=== PATIENT | female | born 1950 | race Caucasian/White ===

== ENCOUNTER 2017-08-24 13:51 | Inpatient (IN) | payer MEDICARE, OTHER ==
[~2017-08-24] VITALS: Ht 160 cm; Wt 66.7 kg
[2017-08-24] MEDS: ALBUTEROL/IPRATROPIUM 3 ML NEB NEB SCH ×2 (00:50→18:55)
[~2017-08-24 13:51] MED LIST: CARAFATE1 GM PO; FAMOTIDINE20 MG PO; FLUOXETINE HCL20 MG PO; MELATONIN3 M1 PO; METHADONE HCL10 MG PO; NAPROXEN250 MG PO; NEXIUM40 MG PO; PANTOPRAZOLE SO40 MG PO; QUETIAPINE FUM100 MG PO; SEROQUEL50 MG PO; TRAZODONE HCL50 MG PO; TYLENOL # 31 EA PO; ULTRAM 50MG50 MG PO; XANAX0.25 MG PO
--- OUTSIDE RECORDS SUMMARY | 2017-08-24 13:55 | XMS REPORT ---
Author Author [facility] Address Unknown Phone Unavailable Care Team Providers Care Membership Sales Advisor Name Role Phone ANGIE FAIRCHILD Unavailable Unavailable BELL CHILDERS Unavailable Unavailable BERNIE CARBAJAL Unavailable Unavailable Problems This patient has no known problems. Allergies, Adverse Reactions, Alerts This patient has no known allergies or adverse reactions. Medications This patient has no known medications. Results Test Description Test Time Test Comments Text Results Atomic Results Result Comments THORACIC SPINE AP LA [facility] [address] [address] Patient Name: JAMAL PEREA MR #: [id number] : 1950 Age/Sex: 66/F Req #: [id number] [facility] Physician: ANGIE FAIRCHILD MD Ordered by: ANGIE FAIRCHILD MD Report #: [id number] Location: MED/SURG Room/Bed: [facility] Procedure: [id number] DX/THORACIC SPINE AP LA Exam Date : 06/07/17 Exam Time: 2109 REPORT STATUS: Signed EXAM: THORACIC SPINE AP LA, 2 views DATE: 06/07/2017 5:58 PM Time stamp on exam: 6 hours INDICATION: Pain across upper back COMPARISON: CT of the chest June 02, 2017 FINDINGS: BONES: The alignment is within normal limits. No acute displaced fractures. No lytic or blastic lesions. DISCS: Multilevel degenerative disc predominantly of the mid and lower thoracic spine manifested by joint space narrowing and anterior osteophytes. JOINTS: Mild multilevel facet arthropathy. SOFT TISSUES : Right internal jugular vein chest port. Left lower lobe atelectasis. The previously seen left upper anterior mediastinal mass on prior CT is not well seen by x-ray. IMPRESSION: No acute thoracic spine radiographic findings. Signed by: Dr. Bre Mcbride M.D. on 06/07/2017 9:39 PM Dictated By: BRE MCBRIDE MD 38 Transcribed By: BIGG on 06/07/172138 COPY TO: ANGIE FAIRCHILD MD CHEST SINGLE (PORTABLE) [address] [place] [address] Patient Name: JAMAL PEREA MR #: [id number] : 1950 Age/Sex: 66/F Req #: [id number] Adm Physician: Ordered by: NORMAN SRINIVASAN MD Report #: [id number] Location: ER Room/Bed: Procedure: [id number] DX/CHEST SINGLE (PORTABLE) Exam Date: 06/02/17 Exam Time: 1145 REPORT STATUS: Signed PROCEDURE: A single AP view of the chest. COMPARISON: [facility], DX, CHEST SINGLE (PORTABLE), 04/07/2017, 5:45. INDICATIONS: COUGHING BLOOD, SHORTNESS OF BREATH FINDINGS: Lines/tubes: Right chest Port-A -Cath with distal tip projected on the SVC proximal to the caval atrial junction, unchanged. Lungs and Pleura: Re-demonstration of increased density in the lower left hemithorax suggestive of pleural effusion and associated subsegmental atelectasis, however, cannot exclude consolidation or underlying mass. The right lung is clear. Heart and mediastinum: The heart and the mediastinum are unremarkable. Bones: No acute bony abnormality. IMPRESSION: 1. Re-demonstration of increased density in the lower left hemithorax suggestive of pleural effusion and associated subsegmental atelectasis, however, cannot exclude consolidation or underlying mass. Grayson Weaver M.D. Dictated by: Grayson Weaver M.D. on 06/02/2017 at 12:11 Electronically approved by : Grayson Weaver M.D. on 06/02/2017 at 12:11 Dictated By: ANASTACIO WEAVER MD, MD 1211 COPY TO: NORMAN SRINIVASAN MD CT CHEST W [place] [address] Patient Name: JAMAL PEREA MR #: [id number] : 1950 Age/Sex: 66/F Req #: [id number] Adm Physician: ANGIE FAIRCHILD MD Ordered by: NORMAN SRINIVASAN MD Report #: [id number] Location: [facility] Room/Bed: [address] [place] [address] Procedure: [id number] CT/CT CHEST W Exam Date: 06/02/17 Exam Time: 1340 REPORT STATUS: Signed EXAM: CT Chest WITH contrast 06/02/2017 10:38 AM INDICATION: Coughing blood. Lung cancer. Hemoptysis. COMPARISON: None TECHNIQUE: Chest was scanned utilizing a multidetector helical scanner from the lung apex through the level of the adrenal glands without administration of IV contrast. Coronal and sagittal reformations were obtained. Pulmonary embolism protocol was performed. IV CONTRAST: 100 cc Isovue-370. RADIATION DOSE: Total DLP: 467.16 mGy*cm Estimated effective dose: (DLP x 0.014 x size factor ) mSv COMPLICATIONS: None FINDINGS: LINES/ TUBES: Right chest Port-A-Cath with distal tip obscured by contrast, however upper abdomen , within the cavoatrial junction. LUNGS AND AIRWAYS: Left lower lobe compressive atelectasis containing numerous calcified granulomata. Bilateral centrilobular emphysematous changes. 6 mm spiculated lesion in the right upper lobe laterally series 2. Bilateral calcified granulomata. Right basilar dependent atelectasis. 4 mm noncalcified nodule in the left upper lobe laterally on image 57 series 2. 3 mm calcified nodule in the left upper lobe laterally on image 54 series 2. 2 mm subpleural noncalcified nodule in the left upper lobe anterolaterally on image 52 series 3. 6 mm spiculated lesion in the left upper lobe on coronal image 25. PLEURA: Small left pleural effusion. HEART AND MEDIASTINUM: The thyroid gland is normal. Large prevascular mass lateral to the proximal aortic arch measures 4.1 x 3.1 cm on image 40 series 2; there is a large focus of calcification either abutting or within its posterior aspect on image 43; this could represent a lymph node mass, or a pleural-based left upper lobe mass with invasion of the mediastinum. This is smaller mildly prominent lymph nodes scattered throughout the mediastinum. There are also small calcified lymph nodes. Mildly prominent left internal mammary lymph nodes as seen on axial images 41 and 42 series 2. The heart is normal in size.. There is no pericardial effusion. UPPER ABDOMEN: Limited non-contrast views of the upper abdomen show splenomegaly. Heterogeneous spleen with multiple punctate calcified granulomata. The adrenal glands are normal. BONES: No suspicious lesions. SOFT TISSUES: Unremarkable. IMPRESSION: 1. No evidence of pulmonary embolism as per clinical query. 2. 4.1 cm mass abutting the superior left mediastinum may represent a prevascular lymph node mass or a pleural-based central pulmonary malignancy mass with invasion of the mediastinum as detailed above. 3. Small left pleural effusion associated with left basilar compressive atelectasis. 4. Evidence of prior granulomatous disease. 5. Splenomegaly partially visualized. 6. Bilateral subcentimeter spiculated pulmonary lesions are nonspecific; recommend attention on future follow-up to exclude developing neoplasm. 7. Pulmonary emphysema. Signed by: Dr. Grayson Weaver M.D. on 2016 2:31 PM Dictated By: ANASTACIO WEAVER MD, MD 30 Transcribed By: BIGG on 06/02/171430 COPY TO: NORMAN SRINIVASAN MD CHEST SINGLE (PORTABLE) [place] [address] Patient Name: JAMAL PEREA MR #: [id number] : 1950 Age/Sex: 66/F Req #: [id number] Adm Physician: Ordered by: BELL CHILDERS MD Report #: [id number] Location: ER Room/Bed: ___ Procedure: [id number] DX/CHEST SINGLE (PORTABLE) Exam Date: 04/07/17 Exam Time: 0545 REPORT STATUS: Signed EXAM: CHEST SINGLE (PORTABLE), AP 1 view DATE: 04/07/2017 5:21 AM Time stamp on exam : 0545 hours INDICATION: Shortness of breath, cough, history of lung cancer COMPARISON: AP view of the chest the 2016 FINDINGS: LINES/TUBES: Stable position of right internal jugular vein chest port. LUNGS: Interval increased left lung base atelectasis. PLEURA: Stable elevation of the left hemidiaphragm. HEART AND MEDIASTINUM: Normal size and contour. BONES AND SOFT TISSUES: No acute findings. IMPRESSION: Interval increased left lung base atelectasis. This could represent pneumonia in the appropriate clinical setting. Signed by: Dr. Bre Mcbride M.D. on 2016 6:22 AM Dictated By: BRE MCBRIDE MD 1 Transcribed By: BIGG on 04/07/17621 COPY TO: BELL CHILDERS MD CHEST SINGLE (PORTABLE) [place] [address] Patient Name: JAMAL PEREA MR #: [id number] : 1950 Age/Sex: 66/F Req #: [id number] Adm Physician: Ordered by: BERNIE CARBAJAL MD Report #: [id number] Location: ER Room/Bed: Procedure: [id number] DX/CHEST SINGLE (PORTABLE) Exam Date: 03/27/17 Exam Time: 0800 REPORT STATUS: Signed Examination: Single AP view of the chest. COMPARISON: December 16, 2016 INDICATION: Pain DISCUSSION: Lines/tubes: Chest port tip above the cavoatrial junction. Lungs: Left lower lobe atelectasis. Multiple small calcified granuloma. Pleura: Elevated left hemidiaphragm. Heart and mediastinum: Heart size normal. Calcified mediastinal nodes. Bones and soft tissues: No acute bony abnormalities. IMPRESSION: 1. No acute cardiopulmonary abnormalities. Signed by: Dr. Esteban Begum M.D. on 03/27/2017 8:41 AM Dictated By: ESTEBAN BEGUM MD 0 Transcribed By: BIGG on 840 COPY TO: BERNIE CARBAJAL MD CT ABDOMEN/PELVIS WO [place] [address] Patient Name: JAMAL PEREA MR #: [id number] : 1950 Age/Sex: 66/F Req #: [id number] Adm Physician: Ordered by: BELL CHILDERS MD Report #: [id number] Location: ER Room/Bed: ___ Procedure: [id number] CT/CT ABDOMEN/PELVIS WO Exam Date: 03/27/17 Exam Time: 0800 REPORT STATUS: Signed EXAMINATION : CT of the abdomen and pelvis without contrast. TECHNIQUE: Helical CT images of the abdomen and pelvis were performed from the lung bases to the lesser trochanters. No intravenous contrast was given. Contrast material.. Coronal and sagittal reformatted images were obtained. COMPARISON: None. CLINICAL HISTORY:Abdominal pain all over DISCUSSION: ABSENCE OF INTRAVENOUS CONTRAST DECREASES SENSITIVITY FOR DETECTION OF FOCAL LESIONS AND VASCULAR PATHOLOGY. ABDOMEN/PELVIS: LOWER THORAX: Left base atelectasis. Scattered calcified granuloma. HEPATOBILIARY:No focal hepatic lesions. No biliary ductal dilation. The gallbladder is normal. SPLEEN: Mild splenomegaly measuring 13.5 cm. Calcified granuloma. No discrete splenic mass on noncontrast CT, however the contour is lobular. Refer to prior MRI report from October 2014. These images are not currently available for review. PANCREAS: No focal masses or ductal dilatation. ADRENALS: No adrenal nodules. KIDNEYS/URETERS: No hydronephrosis, stones, or solid mass lesions. PELVIC ORGANS/BLADDER: The bladder is normal. PERITONEUM/RETROPERITONEUM: Chronic inflammatory thickening/scarring of the left upper quadrant. LYMPH NODES: No intra- abdominal,retroperitoneal, pelvic or inguinal lymphadenopathy. VESSELS: Limited evaluation. GI TRACT: No distention or wall thickening. Colonic diverticulosis without inflammatory change. The appendix is normal. BONES AND SOFT TISSUES: No bony destructive lesions. No soft tissue abnormalities. IMPRESSION: Chronic inflammation/scarring of the left upper quadrant mesentery. Diverticulosis without diverticulitis. Otherwise no acute noncontrast CT abnormality. Signed by: Dr. Esteban Begum M.D. on 03/27/2017 8:49 AM Dictated By: ESTEBAN BEGUM MD 8 Transcribed By: BIGG on 03/27/17848 COPY TO: BELL CHILDERS MD
[2017-08-24] MEDS ORDERED: SODIUM CHLORIDE 0.9% 1000ML 1,000 ML IV STA (14:10)
[2017-08-24] MEDS ORDERED: ONDANSETRON HCL INJ 2 MG/ML VIAL IV STA (14:10)
[2017-08-24] MEDS ORDERED: ALBUTEROL/IPRATROPIUM 3 ML NEB NEB ONE (14:15)
[2017-08-24] MEDS ORDERED: HYDROMORPHONE 1MG/1ML INJ IV STA (14:57)
[2017-08-24 14:58] LABS: BASOPHILS % 0.1 % (0.0-1.0); EOSINOPHILS % 0.5 % (0.0-6.0); HEMATOCRIT 35.2 % (34.2-44.1); HEMOGLOBIN 11.4 g/dL (12.0-16.0); LYMPHOCYTES # (AUTO) 0.5 (1.0-3.2); LYMPHOCYTES % 6.1 % (18.0-39.1); MEAN CORPUSCULAR HEMOGLOBIN 27.5 pg (28-32); MEAN CORPUSCULAR HGB CONC 32.4 g/dL (31-35); MONOCYTES # (AUTO) 0.4 (0.2-0.8); MONOCYTES % 4.6 % (4.4-11.3); NEUTROPHILS # (AUTO) 7.1 (2.1-6.9); NEUTROPHILS % 88.5 % (38.7-80.0); PLATELET COUNT 172 x10e3/uL (140-360); RED BLOOD COUNT 4.14 x10e6/uL (3.6-5.1)
--- NOTE | 2017-08-24 15:08 | Diagnostic Imaging Report ---
PROCEDURE: A single AP view of the chest. COMPARISON: CT chest 06/02/2017. INDICATIONS: SHORTNESS OF BREATH FINDINGS: Lines/tubes: Right internal jugular tunneled chest port with tip projecting over the expected region of the superior vena cava. Lungs: There is no evidence of pneumonia or pulmonary edema. Left lung base atelectasis. Pleura: Small left pleural effusion. No pneumothorax. Heart and mediastinum: Stable left mediastinal mass. Normal cardiac silhouette. Bones: No acute bony abnormality. Degenerative changes of the thoracic spine. IMPRESSION: Stable mediastinal mass. Dictated by: Zenon Kingsley M.D. on 08/24/2017 at 15:08 Electronically approved by: Zenon Kingsley M.D. on 08/24/2017 at 15:08
[2017-08-24 15:19] LABS: ALANINE AMINOTRANSFERASE 8 IU/L (0-55); ALBUMIN 3.5 g/dL (3.5-5.0); ALBUMIN/GLOBULIN RATIO 0.8 (0.8-2.0); ALKALINE PHOSPHATASE 88 IU/L (40-150); ANION GAP 16.8 mmol/L (8-16); BLOOD UREA NITROGEN 10 mg/dL (7-26); BUN/CREATININE RATIO 13 (6-25); CALCIUM 9.7 mg/dL (8.4-10.2); CARBON DIOXIDE 24 mmol/L (22-29); CHLORIDE 101 mmol/L (98-107); CREATINE KINASE 36 IU/L (29-168); EST GLOMERULAR FILTRATION RATE > 60 ML/MIN (60-); GLUCOSE 183 mg/dL (74-118); LIPASE 10 U/L (8-78); POTASSIUM 3.8 mmol/L (3.5-5.1); SODIUM 138 mmol/L (136-145)
--- NOTE | 2017-08-24 16:05 | Diagnostic Imaging Report ---
PROCEDURE: CT ABDOMEN AND PELVIS WITHOUT CONTRAST TECHNIQUE: The abdomen and pelvis were scanned utilizing a multidetector helical scanner from the diaphragm to the lesser trochanter. Patient unable to tolerate oral contrast. No IV contrast was administered because of history of iodine allergy. Coronal and sagittal multiplanar reformations were obtained. COMPARISON: [facility], CT, CT ABDOMEN/PELVIS , 03/27/2017, 8:06. INDICATIONS: ABDOMEN PAIN, vomiting FINDINGS: ABSENCE OF INTRAVENOUS CONTRAST DECREASES SENSITIVITY FOR DETECTION OF FOCAL LESIONS AND VASCULAR PATHOLOGY. LOWER THORAX: Multiple stable bilateral lower lobe calcified granulomata. Stable linear scarring in the lingula. Calcified paraesophageal lymph nodes. Atherosclerotic calcification of the coronary arteries. HEPATOBILIARY: No focal hepatic lesions. No biliary ductal dilatation. Gallbladder is unremarkable. SPLEEN: Stable mild splenomegaly, measuring approximately 13.2 cm in AP diameter. Calcified splenic granulomas. PANCREAS: No focal masses or ductal dilatation. ADRENALS: No adrenal nodules. KIDNEYS/URETERS: No hydronephrosis, stones, or solid mass lesions. PELVIC ORGANS/BLADDER: Bladder and uterus are unremarkable. No adnexal masses. PERITONEUM / RETROPERITONEUM: No free air or fluid. LYMPH NODES: No lymphadenopathy. VESSELS: Mild atherosclerotic calcification of the infrarenal aorta. GI TRACT: No bowel dilation or evidence of obstruction. Appendix is well identified and normal in caliber. Descending and sigmoid colon diverticulosis, without diverticulitis. BONES AND SOFT TISSUES: No aggressive lytic lesion. Level degenerative disc changes in the lower thoracic and lumbosacral spine, worse at L4-L5, and L5-S1. Facet hypertrophy L5-S1. Small fat containing umbilical hernia.. IMPRESSION: 1. no acute abdominopelvic abnormalities in this noncontrast exam. No bowel dilation or evidence of obstruction. 2. Stable mild splenomegaly. 3. Stable changes secondary to prior granulomatous infection. Armin Kemp M.D. Dictated by: Armin Kemp M.D. on 08/24/2017 at 16:04 Electronically approved by: Armin Kemp M.D. on 08/24/2017 at 16:04
[2017-08-24] MEDS ORDERED: ONDANSETRON HCL INJ 2 MG/ML VIAL IV ONE (16:15)
[2017-08-24] MEDS: SODIUM CHLORIDE 0.9% 1000ML 1,000 ML IV SCH (16:44)
[2017-08-24] MEDS ORDERED: SODIUM CHLORIDE FLUSH 10 ML SYR INJ PRN (16:45)
[2017-08-24] MEDS ORDERED: DEXTROSE 50% SYRINGE 50 ML IV PRN (16:45)
[2017-08-24] MEDS ORDERED: XANAX0.5 MG PO (17:58)
[2017-08-24] MEDS ORDERED: METHADONE HCL 10 MG TAB PO PRN (18:30)
[2017-08-24] MEDS: HYDROMORPHONE 1MG/1ML INJ IV PRN ×2 (18:54→22:55)
[2017-08-24] MEDS: ONDANSETRON HCL INJ 2 MG/ML VIAL IV PRN ×2 (18:55→22:56)
[2017-08-24] MEDS: INSULIN REGULAR, HUMAN 100 UNIT/1 ML 3ML VIAL SQ SCH (21:11)
[2017-08-24] MEDS: ALPRAZOLAM 0.25 MG TAB PO SCH (21:14)
[2017-08-24] MEDS: MELATONIN 3 MG TAB PO SCH (21:15)
[2017-08-24 23:20] VITALS: BP 112/68
[2017-08-24 23:43] VITALS: BP 112/68
[2017-08-25] VITALS (7 sets, daily range): BP systolic 83–112; BP diastolic 52–68
[2017-08-25] MEDS: MELATONIN 3 MG TAB PO SCH ×2 (00:15→22:16)
[2017-08-25 01:05] LABS: CREATINE KINASE MB 0.8 ng/mL (0-5.0)
[2017-08-25] MEDS: ALBUTEROL/IPRATROPIUM 3 ML NEB NEB SCH ×6 (03:00→23:30)
[2017-08-25] MEDS: HYDROMORPHONE 1MG/1ML INJ IV PRN ×2 (03:56→11:36)
[2017-08-25] MEDS: ONDANSETRON HCL INJ 2 MG/ML VIAL IV PRN (03:56)
[2017-08-25] MEDS: INSULIN REGULAR, HUMAN 100 UNIT/1 ML 3ML VIAL SQ SCH ×4 (07:30→22:24)
[2017-08-25] MEDS: ALPRAZOLAM 0.25 MG TAB PO SCH ×3 (08:09→22:16)
[2017-08-25] MEDS: SODIUM CHLORIDE 0.9% 1000ML 1,000 ML IV SCH ×2 (08:45→17:27)
[2017-08-25 09:11] LABS: BASOPHILS % 0.2 % (0.0-1.0); EOSINOPHILS # (AUTO) 0.1 (0.0-0.4); EOSINOPHILS % 2.2 % (0.0-6.0); HEMATOCRIT 29.2 % (34.2-44.1); HEMOGLOBIN 8.9 g/dL (12.0-16.0); LYMPHOCYTES # (AUTO) 0.6 (1.0-3.2); LYMPHOCYTES % 14.1 % (18.0-39.1); MEAN CORPUSCULAR HGB CONC 30.5 g/dL (31-35); MEAN CORPUSCULAR VOLUME 88.5 fL (81-99); MONOCYTES # (AUTO) 0.5 (0.2-0.8); MONOCYTES % 10.1 % (4.4-11.3); NEUTROPHILS # (AUTO) 3.3 (2.1-6.9); PLATELET COUNT 130 x10e3/uL (140-360); RED CELL DISTRIBUTION WIDTH 16.2 % (11.7-14.4)
[2017-08-25 09:30] LABS: ANION GAP 12.8 mmol/L (8-16); BLOOD UREA NITROGEN 8 mg/dL (7-26); BUN/CREATININE RATIO 10 (6-25); CALCIUM 8.8 mg/dL (8.4-10.2); CARBON DIOXIDE 26 mmol/L (22-29); CHLORIDE 107 mmol/L (98-107); CREATINE KINASE 24 IU/L (29-168); CREATININE, SERUM 0.78 mg/dL (0.57-1.11); EST GLOMERULAR FILTRATION RATE > 60 ML/MIN (60-); GLUCOSE 102 mg/dL (74-118); POTASSIUM 3.8 mmol/L (3.5-5.1); SODIUM 142 mmol/L (136-145)
--- NOTE | 2017-08-25 12:07 | History and Physical ---
HISTORY OF PRESENT ILLNESS: The patient presented to the emergency room complaining of 3 weeks of poor appetite she tells me. I was called by Dr. Pat, who stated he was hospitalizing the hospital for abdominal pain with negative workup. See also nurse's notes stating that patient was flailing and screaming on arrival, asking for anxiety meds. The patient told me she has occasional midback pain, but denied abdominal pain during my interview in the emergency room. This is one of many visits here for this patient. See multiple prior recent stays. History is positive for pulmonary malignancy with a mediastinal mass. The patient has been under the care of Dr. Maxwell and she says Dr. Hardwick. She states she saw Dr. Maxwell 2 to 3 weeks ago. She has also had a 7 cm anterior mediastinal mass on prior PET scan with central necrosis and has been undergoing radiotherapy in the recent past. Her pulmonary physician has been Dr. Yann Hyatt. 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 Patient has multiple other pathological diagnoses including hiatal hernia, diverticulosis, chronic back pain with degenerative joint disease, chronic heavy tobacco use (she still smokes 1/2 pack of cigarettes daily), chronic mood disorder, thrombocytopenia, history of prior low B12 levels here. Hepatitis C antibody reactive with negative quantitative hepatitis C viral studies, August 20, 2015. Osteoporosis. Negative stress scan and normal LV function, August 11, [address] Chidi Hyatt. History of esophageal ulcers. She has seen Dr. Olena Lee here previously. Pneumovax, October 31, 2014 here. PPD negative, 2013. SURGERIES: Ventral herniorrhaphy, 2013. EGD with severe esophagitis, 2014. Colonoscopy, 2014. Denies alcohol. ALLERGIES: ALLERGIC TO BETADINE. FAMILY HISTORY: Breast and ovarian cancer in patient's mother. Ejection fraction 50%, December 2016 here. CURRENT ER LABS: White count 6.78, hemoglobin 10.5, indices normal, platelet count 82,000, differential 82 neutrophils, 5 lymphocytes. INR 1.1, PTT 34. Urinalysis clear. These are [facility] labs. On August 24, 2017, white count 8.05; hemoglobin 11.4; MCH 27.5, trace low; platelets 172,000. Chemistry with comprehensive metabolic profile, glucose 183, globulin 4.5, otherwise normal. Lipase normal at 10. Cardiac enzymes negative for MS. ER requested 2 blood cultures. ER chest x-ray today, stable mediastinal mass compared to chest CT June 02, 2017 and chest x-ray today. Degenerative changes, thoracic spine. Abdominal and pelvic CT today in ER, no acute abnormalities. Stable mild splenomegaly. Stable changes secondary to prior granulomatous infection. Disk disease, lower thoracic and lumbosacral spine, worse at L4-5 and L5-S1. Facet hypertrophy, L5-S1. Umbilical hernia small. PHYSICAL EXAMINATION: VITAL SIGNS: Pulse is 77 and regular, respiratory rate 16, BP 138/95, O2 saturation 98%, temperature 98.7. HEENT: Pupils dilated 4 mm, round, react. Lens is hazy. Throat clear. Trace pallor. NECK: Supple. Carotids palpable. No palpable goiter. PULMONARY: Auscultation, trace reduced breath sounds. CARDIAC: Sounds S1, S2 within normal range. ABDOMEN: Soft. Bowel sounds normal. EXTREMITIES: Without edema, clubbing, or cyanosis. Pulses palpable. DTRs reduced. Strength fair. Sensation intact. NEUROLOGICAL: The patient is oriented. CURRENT IMPRESSION: Squamous mediastinal thoracic malignancy, status post radiotherapy. Presented here with 2 to 3 weeks of poor appetite. Emergency room reported abdominal pain on arrival. The patient notes she has had intermittent back pain. Abnormal lumbar and thoracic spine as above. Chronic illnesses include mood disorder, osteoporosis, hiatal hernia, diverticulosis, chronic obstructive pulmonary disease with ongoing tobacco use, history of low B12 levels, hepatitis C with negative quantitative studies on last testing, and past history of severe esophagitis, see prior esophagogastroduodenoscopies here. Current plans are to control the patient's symptoms. See also initial orders. Per emergency room, to follow up and control blood sugars. Further treatment pending course and followup data. Job#: [id number]
[2017-08-25 13:04] LABS: % IRON SATURATION 12 % (15-50); IRON 26 ug/dL (50-170); TOTAL IRON BINDING CAPACITY 211 ug/dL (261-478); TRANSFERRIN 151 mg/dL (180-382)
[2017-08-25 13:42] LABS: BILIRUBIN,URINE NEGATIVE (NEGATIVE); KETONES,URINE NEGATIVE (NEGATIVE); LEUKOCYTE ESTERASE ,URINE NEGATIVE (NEGATIVE); NITRITE,URINE NEGATIVE (NEGATIVE); PROTEIN,URINE DIPSTICK NEGATIVE (NEGATIVE); URINE UROBILINOGEN 0.2 mg/dL (0.2 - 1)
[2017-08-25] MEDS: FLUOXETINE HCL 20 MG CAP PO SCH (14:05)
[2017-08-25] MEDS: PANTOPRAZOLE SOD 40 MG TABEC PO SCH (14:05)
[2017-08-25 14:20] LABS: CLARITY,URINE CLEAR (CLEAR); COLOR,URINE YELLOW (YELLOW)
[2017-08-25 14:22] LABS: BACTERIA,URINE FEW /HPF; EPITHELIAL CELLS,URINE MODERATE /LPF; WBC,URINE (MAN) 0-5 /HPF (0-5)
[2017-08-25] MEDS: METHADONE HCL 10 MG TAB PO PRN (22:25)
[2017-08-25] MEDS ORDERED: CLINDAMYCIN 300MG 50 ML IV ONE (22:45)
[2017-08-26] VITALS (7 sets, daily range): BP systolic 83–106; BP diastolic 51–56
[2017-08-26] MEDS ORDERED: CYANOCOBALAMIN INJ 1,000 MCG/ML VIAL IM ONE
[2017-08-26] MEDS ORDERED: CYANOCOBALAMIN INJ 1,000 MCG/ML VIAL IM SCH
[2017-08-26] MEDS: ALBUTEROL/IPRATROPIUM 3 ML NEB NEB SCH ×6 (03:00→23:00)
[2017-08-26] MEDS: SODIUM CHLORIDE 0.9% 1000ML 1,000 ML IV SCH ×2 (05:15→18:09)
[2017-08-26] MEDS: CLINDAMYCIN 300MG 50 ML IV SCH ×3 (06:30→22:14)
[2017-08-26 07:30] LABS: BASOPHILS % 0.2 % (0.0-1.0); EOSINOPHILS # (AUTO) 0.2 (0.0-0.4); EOSINOPHILS % 3.9 % (0.0-6.0); HEMATOCRIT 27.1 % (34.2-44.1); HEMOGLOBIN 8.3 g/dL (12.0-16.0); LYMPHOCYTES # (AUTO) 0.6 (1.0-3.2); MEAN CORPUSCULAR HEMOGLOBIN 27.5 pg (28-32); MEAN CORPUSCULAR HGB CONC 30.6 g/dL (31-35); MEAN CORPUSCULAR VOLUME 89.7 fL (81-99); MONOCYTES # (AUTO) 0.4 (0.2-0.8); MONOCYTES % 9.3 % (4.4-11.3); NEUTROPHILS # (AUTO) 3.4 (2.1-6.9); NEUTROPHILS % 73.4 % (38.7-80.0); PLATELET COUNT 123 x10e3/uL (140-360); RED BLOOD COUNT 3.02 x10e6/uL (3.6-5.1); RED CELL DISTRIBUTION WIDTH 16.4 % (11.7-14.4)
[2017-08-26 07:38] LABS: ANION GAP 10.6 mmol/L (8-16); BLOOD UREA NITROGEN 7 mg/dL (7-26); BUN/CREATININE RATIO 9 (6-25); CALCIUM 8.4 mg/dL (8.4-10.2); CARBON DIOXIDE 25 mmol/L (22-29); CHLORIDE 108 mmol/L (98-107); CREATININE, SERUM 0.77 mg/dL (0.57-1.11); EST GLOMERULAR FILTRATION RATE > 60 ML/MIN (60-); GLUCOSE 119 mg/dL (74-118); POTASSIUM 3.6 mmol/L (3.5-5.1); SODIUM 140 mmol/L (136-145)
[2017-08-26] MEDS: IRON-VITAMIN-MINERAL CAPSULE PO SCH ×2 (08:18→16:42)
[2017-08-26] MEDS: PANTOPRAZOLE SOD 40 MG TABEC PO SCH (08:18)
[2017-08-26] MEDS: ALPRAZOLAM 0.25 MG TAB PO SCH ×3 (08:19→22:14)
[2017-08-26] MEDS: FLUOXETINE HCL 20 MG CAP PO SCH (08:19)
[2017-08-26] MEDS: INSULIN REGULAR, HUMAN 100 UNIT/1 ML 3ML VIAL SQ SCH ×4 (08:19→21:00)
[2017-08-26] MEDS: METHADONE HCL 10 MG TAB PO PRN ×2 (09:23→17:55)
[2017-08-26] MEDS: VANCOMYCIN 1GM/NS 250 ML 250 ML IV SCH (14:10)
--- NOTE | 2017-08-26 14:16 | Consultation ---
DATE OF CONSULTATION: August 26, 2017 INFECTIOUS DISEASE CONSULTATION ATTENDING PHYSICIAN: Dr. Horace Barajas. REASON FOR CONSULTATION: Sepsis. Thank you, Dr. Barajas, for asking me to see this patient. HISTORY: The patient is a 67-year-old woman referred for sepsis. The patient was admitted through the emergency department with nausea, decreased oral intake, and weight loss. The patient has squamous cell cancer of the lung with a mediastinal mass. She has received radiation therapy and has completed the course of chemotherapy as well, more than a month ago. Since admission, the patient has been evaluated by the GI service. Infectious disease consultation was called because the blood culture collected in the emergency room is growing gram-positive cocci in clusters. The patient has a Port-A-Cath placed in November 2016 and has had no issue with it. Patient denies fever. PAST MEDICAL HISTORY: Squamous cell lung cancer with mediastinal mass, chronic obstructive pulmonary disease, tobacco use disorder, esophageal ulcer, gastroesophageal reflux disease, diverticulitis, and treated syphilis. PAST SURGICAL HISTORY: Port-A-Cath placement and ventral hernia repair. ALLERGIES: IODINE. MEDICATION: See MAR The current antibiotic is clindamycin 300 mg IV piggyback q.8 h. IMMUNIZATION: She declined influenza vaccination. She received pneumococcal vaccination about 2 years ago. FAMILY HISTORY: The mother had breast and ovarian cancers. SOCIAL HISTORY: She still smokes at least half a pack of cigarettes a day. She denies alcohol use. She quit intravenous drug use. She used to use multiple IV drugs. PHYSICAL EXAMINATION GENERAL: No acute distress. VITAL SIGNS: T-max 97.9, pulse 80, respiratory rate 18, blood pressure 89/53. Weight 147 pounds. HEENT: Normocephalic. There is no icterus or injection of conjunctivae. There is no ear or nasal discharge. Edentulous with moist oral mucosa. No pharyngeal erythema or exudate. NECK: Supple. No JVD. LUNGS: Decreased breath sounds bilaterally. HEART: Normal S1 and S2. ABDOMEN: Soft and nontender. EXTREMITIES: There is no edema, clubbing or cyanosis. SKIN: There is no acute erythema. 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 Mild to moderate memory loss. Nonfocal. LABORATORY: WBC 4610, hemoglobin 8.3, platelet 123,000, neutrophil 73.4, lymph 13, mono 9.3, eosinophil 3.9, basophil 0.2. BUN 7, creatinine 0.77. Urinalysis was negative. Blood Gram stain yielded gram-positive cocci in clusters. Repeat blood culture is pending. Urine culture showed no growth. Noncontrast CT of the abdomen and pelvis showed no acute abdominopelvic abnormality. Chest x-ray showed a stable mediastinal mass. IMPRESSION 1. Positive blood culture. 2. Squamous cell lung cancer with mediastinal mass. 3. Chronic obstructive pulmonary disease. 4. Tobacco use disorder. PLAN 1. Await blood isolate identification and sensitivity. Check RPR. 2. Switch antibiotic to vancomycin 1 g IV piggyback q.12 h. Patient was offered the influenza vaccination, but she declined. 3. Smoking cessation counseling was provided to the patient. Job#: [id number] EV MTDSade
[2017-08-26 20:20] LABS: BILIRUBIN,URINE NEGATIVE (NEGATIVE); CLARITY,URINE CLEAR (CLEAR); COLOR,URINE YELLOW (YELLOW); KETONES,URINE NEGATIVE (NEGATIVE); LEUKOCYTE ESTERASE ,URINE NEGATIVE (NEGATIVE); NITRITE,URINE NEGATIVE (NEGATIVE); PROTEIN,URINE DIPSTICK NEGATIVE (NEGATIVE); URINE UROBILINOGEN 0.2 mg/dL (0.2 - 1)
[2017-08-26 20:35] LABS: EPITHELIAL CELLS,URINE FEW /LPF
[2017-08-26] MEDS: MELATONIN 3 MG TAB PO SCH (22:14)
[2017-08-26] MEDS: ACETAMINOPHEN 325 MG TAB PO PRN (23:50)
[2017-08-27] VITALS (8 sets, daily range): BP systolic 82–129; BP diastolic 51–73
[2017-08-27] MEDS: VANCOMYCIN 1GM/NS 250 ML 250 ML IV SCH ×2 (00:34→14:02)
[2017-08-27] MEDS: ALBUTEROL/IPRATROPIUM 3 ML NEB NEB SCH ×5 (03:00→19:45)
[2017-08-27] MEDS: METHADONE HCL 10 MG TAB PO PRN (04:22)
[2017-08-27] MEDS: CLINDAMYCIN 300MG 50 ML IV SCH ×2 (05:34→13:36)
[2017-08-27] MEDS: SODIUM CHLORIDE 0.9% 1000ML 1,000 ML IV SCH ×2 (05:34→22:09)
[2017-08-27 06:33] LABS: BASOPHILS % 0.3 % (0.0-1.0); EOSINOPHILS # (AUTO) 0.2 (0.0-0.4); HEMATOCRIT 25.5 % (34.2-44.1); LYMPHOCYTES # (AUTO) 0.4 (1.0-3.2); LYMPHOCYTES % 11.6 % (18.0-39.1); MEAN CORPUSCULAR HGB CONC 30.6 g/dL (31-35); MEAN CORPUSCULAR VOLUME 91.4 fL (81-99); MONOCYTES # (AUTO) 0.4 (0.2-0.8); MONOCYTES % 10.6 % (4.4-11.3); NEUTROPHILS # (AUTO) 2.7 (2.1-6.9); NEUTROPHILS % 72.2 % (38.7-80.0); PLATELET COUNT 111 x10e3/uL (140-360); RED BLOOD COUNT 2.79 x10e6/uL (3.6-5.1); RED CELL DISTRIBUTION WIDTH 16.5 % (11.7-14.4)
[2017-08-27 06:36] LABS: HEMOGLOBIN 7.8 g/dL (12.0-16.0)
[2017-08-27 06:58] LABS: ANION GAP 10.5 mmol/L (8-16); BLOOD UREA NITROGEN 7 mg/dL (7-26); BUN/CREATININE RATIO 9 (6-25); CALCIUM 8.7 mg/dL (8.4-10.2); CARBON DIOXIDE 26 mmol/L (22-29); CHLORIDE 108 mmol/L (98-107); CREATININE, SERUM 0.79 mg/dL (0.57-1.11); EST GLOMERULAR FILTRATION RATE > 60 ML/MIN (60-); GLUCOSE 123 mg/dL (74-118); POTASSIUM 3.5 mmol/L (3.5-5.1); SODIUM 141 mmol/L (136-145)
[2017-08-27] MEDS: INSULIN REGULAR, HUMAN 100 UNIT/1 ML 3ML VIAL SQ SCH ×4 (07:30→21:21)
[2017-08-27] MEDS: IRON-VITAMIN-MINERAL CAPSULE PO SCH ×2 (07:39→16:29)
[2017-08-27] MEDS: ACETAMINOPHEN 325 MG TAB PO PRN ×2 (07:39→19:30)
[2017-08-27] MEDS: ALPRAZOLAM 0.25 MG TAB PO SCH ×3 (07:39→21:21)
[2017-08-27] MEDS: PANTOPRAZOLE SOD 40 MG TABEC PO SCH (07:39)
[2017-08-27] MEDS: FLUOXETINE HCL 20 MG CAP PO SCH (07:39)
[2017-08-27] MEDS ORDERED: SODIUM CHLORIDE 0.9% 250ML 250 ML IV ONE (17:00)
[2017-08-27] MEDS ORDERED: ACETAMINOPHEN/CODEINE 300MG - 30MG TAB PO PRN (17:45)
--- NOTE | 2017-08-27 19:25 | Diagnostic Imaging Report ---
EXAMINATION: PA and lateral views of the chest. COMPARISON: CT chest 06/02/2017, thoracic spine 06/07/2017 CLINICAL HISTORY: Cough, shortness of breath for 2-3 days, lung cancer DISCUSSION: Lines/tubes: Right upper chest Port-A-Cath has distal tip projecting in the distal SVC. Lungs: Lungs are well-inflated. No interval change in posterior left lower lobe dense opacity, likely representing compressive atelectasis. The right lung is grossly clear. Pleura: Left pleural effusion, which may be partly loculated.. Heart and mediastinum: Cardiac silhouette is unremarkable. Fullness/convexity in the region of the AP window, which likely corresponds to the previously visualized mass Bones and soft tissues: No acute bony abnormalities. Degenerative changes in the thoracic spine IMPRESSION: Left pleural effusion and likely associated compressive atelectasis. 2. Fullness/convexity in the region of the AP window likely corresponds to previously visualized lung mass Signed by: Dr. Armin Kemp M.D. on 08/27/2017 7:21 PM
[2017-08-27] MEDS: MELATONIN 3 MG TAB PO SCH (21:21)
[2017-08-27] MEDS ORDERED: SODIUM CHLORIDE 0.9% 250ML 250 ML ONE (23:46)
[2017-08-28] VITALS (8 sets, daily range): BP systolic 99–129; BP diastolic 52–73
[2017-08-28] MEDS: ALBUTEROL/IPRATROPIUM 3 ML NEB NEB SCH ×7 (00:15→23:35)
--- NOTE | 2017-08-28 00:29 | Consultation ---
DATE OF CONSULTATION: DIAGNOSES 1. Carcinoma of the lung, status post systemic chemotherapy and radiation therapy. 2. Hypertension. 3. Chronic obstructive pulmonary disease. 4. Gastroesophageal reflux disease. 5. Dysphagia. 6. Anemia. 7. Anxiety. The patient is an elderly female known to us. She was diagnosed to have squamous cell carcinoma of the lung, D4. She recently had blood work on August 19, 2017, which showed WBC of 5, hemoglobin 10.8, hematocrit 34.5, and platelets of 152,000. CEA was 2.7 mg/mL. Actually, the patient had a CT of the chest on August 11, 2017, which revealed a 4.7 x 3.5 cm mass in the left mediastinum that was stable on workup on the PET scan of April 20, 2017. The initial mass measured 6.8 x 4.9 and currently exam measures 4.7 x 3.5 cm. No pathological axillary or supraclavicular adenopathy is noted. The chest wall is intact. No other lesions were seen. The patient claimed that she was having severe anxiety and nausea, and was admitted because of the nausea. After several days of antinausea medications, it improved. The patient claims that she has significant anxiety, and Dilaudid helps her. However, with methadone she gets some times chest tightness and/or shortness of breath, and claims she may benefit from this longer term. She is also under the care of a psychiatrist for her depression and anxiety. She still smokes at least a half a pack to a pack of cigarettes per day despite repeated warnings to cease this. PHYSICAL EXAMINATION GENERAL: The patient is an elderly white female who has severe pain. VITALS: Her is 90. She has nasal oxygen. She is on an IV. CHEST: Pain radiating to the chest wall. Lungs bilaterally clear. ABDOMEN: Soft. HEART: Regular rate and rhythm. PLAN: The patient may benefit from transfusion to keep her hemoglobin high as she also has shortness of breath. She cautioned against continued smoking. Pain management evaluation and also with psychiatric re-evaluation with possible change in her anxiety medicine may be beneficial. The patient will continue to finish her workup when she leaves the hospital. Thank you for the opportunity to participate in the management of this patient. Job#: [id number] RI cc:MD DR. ABRAM CHOI MD MAURICE E. AKUCHIE, MD
[2017-08-28] MEDS ORDERED: MAGNESIUM HYDROXIDE 30 ML UDC PO ONE ×2 (01:30→07:00)
[2017-08-28] MEDS: ACETAMINOPHEN/CODEINE 300MG - 30MG TAB PO PRN ×3 (01:46→21:05)
[2017-08-28] MEDS: VANCOMYCIN 1GM/NS 250 ML 250 ML IV SCH ×2 (03:20→13:21)
[2017-08-28] MEDS: INSULIN REGULAR, HUMAN 100 UNIT/1 ML 3ML VIAL SQ SCH ×4 (07:30→20:05)
[2017-08-28] MEDS: PANTOPRAZOLE SOD 40 MG TABEC PO SCH (08:02)
[2017-08-28] MEDS: IRON-VITAMIN-MINERAL CAPSULE PO SCH ×2 (08:02→17:13)
[2017-08-28] MEDS: ALPRAZOLAM 0.25 MG TAB PO SCH ×4 (08:02→21:03)
[2017-08-28] MEDS: FLUOXETINE HCL 20 MG CAP PO SCH (08:02)
[2017-08-28 09:56] LABS: HEMATOCRIT 30.4 % (34.2-44.1); HEMOGLOBIN 9.2 g/dL (12.0-16.0)
--- NOTE | 2017-08-28 10:05 | Consultation ---
DATE OF CONSULTATION: August 27, 2017 REQUESTING PHYSICIAN: Dr. Horace Barajas. REASON FOR CONSULTATION: Evaluation and management of patient with known history of lung cancer, now presented with anemia and generalized weakness. HISTORY OF PRESENT ILLNESS: Ms. Freeman is a very pleasant 67-year-old female who is very well known to me as she has received treatment for stage 3 lung cancer with concomitant chemo/radiation. Apparently the patient initially presented with left chest/neck mass and subsequently got CT-guided biopsy revealing non-small cell lung cancer/squamous cell carcinoma. She underwent extensive gene profiling and tumor was negative for EGFR mutation and alk rearrangment. Finally, she was started on systemic chemotherapy with concomitant radiation which she tolerated very well, except she did not receive last dose of systemic chemotherapy. Presently, she is under observation. Now, she has presented with worsening fatigue, tiredness and not feeling well. She is complaining of cough, shortness of breath and generalized weakness. Hematology/oncology has been consulted due to history of lung cancer as well as due to worsening anemia and thrombocytopenia. PAST MEDICAL HISTORY: 1. Stage 3 non-small cell lung cancer, status post concomitant chemo/radiation. 2. Longstanding history of anemia. PAST SURGICAL HISTORY: 1. Port placement. 2. Lung biopsy. 3. Biopsy of the spleen. 4. Right axillary lymph node biopsy one year ago with negative result. 5. Hernia repair. 6. Colonoscopy. SOCIAL HISTORY: The patient is and disabled. She is an exsmoker; however, quit at the time of diagnosis of lung cancer. She used to smoke one pack per day and smoked for 35 years. She does not drink alcohol, no illicit drug use. She used to use marijuana. ALLERGIES: BETADINE. CURRENT MEDICATIONS: Per electronic medical record. REVIEW OF SYSTEMS: A 14-point review of systems is negative except as mentioned in HPI. PHYSICAL EXAMINATION VITAL SIGNS: Reviewed as per electronic medical record. VITAL SIGNS: Reviewed as per electronic medical record. HEAD: Atraumatic, normocephalic. NECK: Supple. CVS: S1 and S2 audible. RESPIRATORY: Decreased bilateral air entry. ABDOMEN: Positive bowel sounds. EXTREMITIES: Trace edema. NEURO: Patient is alert and awake. LABORATORY DATA: White blood cell count of 4.6, hemoglobin 8.3, hematocrit 27.1, platelets 123,000, creatinine 0.7. ASSESSMENT AND PLAN: Ms. Freeman is a very pleasant, 67-year-old female with known history of stage 3 lung cancer, status post concomitant chemo and radiation, followed with supportive care. She is presently having some fatigue and tiredness, not feeling well. Clinical symptoms suggestive of possible pneumonia and COPD exacerbation. Her laboratory workup also revealed anemia and thrombocytopenia. I have reviewed the records and overall it appears that the patient's lung cancer is stable on chest x-ray. Her recent scan also showed stable disease. From anemia standpoint, she has longstanding history of anemia; however, present hemoglobin is on the low side. If it continues to drop, then we will transfuse. Platelet counts are in reasonable rate, and there is no evidence of bleeding, so will closely monitor. She is due for CT scan which will be done as an outpatient. Thank you Dr. Barajas for the consult. I will continue to be available. Please call with any questions. Job#: [id number] GH MTDSade
[2017-08-28] MEDS: MELATONIN 3 MG TAB PO SCH (20:09)
[2017-08-29] VITALS (9 sets, daily range): BP systolic 109–132; BP diastolic 58–79
--- NOTE | 2017-08-29 01:04 | Consultation ---
DATE OF CONSULTATION: PULMONARY/CRITICAL CARE CONSULTATION HISTORY OF PRESENT ILLNESS: Patient is a 66-year-old woman. She was diagnosed with stage 3B bronchogenic carcinoma a year ago. She received chemotherapy followed by radiation. She completed the treatment about 6 months ago. Since that time, her tumor burden has been stable. It has been monitored through Dr. Maxwell's office. The patient came to the emergency department complaining of worsening appetite. She had nausea and vomiting along with some abdominal pain. She was seen by GI. Since being in the hospital, she had a echocardiogram that showed preserved left ventricular function with no significant valvular abnormalities. Her chest x-ray is showing worsening left pleural effusion. PAST MEDICAL HISTORY 1. Squamous cell carcinoma of the lung, stage 3A, which required chemotherapy and radiation. 2. Chronic obstructive pulmonary disease. 3. Stress test about 1-1/2 years ago that was normal. PAST SURGICAL HISTORY 1. Ventral hernia repair. 2. Esophagitis requiring treatment with EGD. ALLERGIES: THE PATIENT REPORTS ALLERGIES TO BETADINE. FAMILY HISTORY: There is a history of breast and ovarian cancer. REVIEW OF SYSTEMS: The patient is afebrile. She does not complain of any chills. She does have some headache over the past couple of months. She has no swollen glands. She does not have chest pain. She notes worsening dyspnea since coming to the hospital. She still has some nausea, although it has improved. She has no diarrhea. She has no leg edema or calf tenderness. She has no focal neurological complaints other than the headache. PHYSICAL EXAMINATION VITALS: The blood pressure is 127/69 and saturation is 100% on 2 L. HEENT: Shows no facial swelling or erythema. The oropharynx is normal. LYMPHATIC: Shows no submandibular, cervical or supraclavicular adenopathy. CARDIAC: Reveals a regular rate and rhythm with normal S1 and S2. There are no murmurs or rubs. LUNGS: Auscultation of the lungs reveals clear breath sounds bilaterally. There are decreased breath sounds on the left side. ABDOMEN: Soft and nontender. There is no rebound or guarding. EXTREMITIES: Shows no leg edema or calf tenderness. There is no cyanosis or clubbing. SKIN: Shows no rashes. NEUROLOGIC: Shows no focal abnormalities. RADIOGRAPHIC DATA: Chest x-ray shows a left pleural effusion, as well as a possible residual mass in the left perihilar region. Hemoglobin is 9.2. BUN to creatinine ratio is normal. The other electrolytes are normal limits. IMPRESSION 1. New left pleural effusion that may be related to bronchogenic carcinoma. 2. History of stage 3A bronchogenic carcinoma. 3. Nausea and vomiting. 4. Chronic obstructive pulmonary disease. 5. Anemia. RECOMMENDATIONS 1. The patient should have a thoracentesis done with fluid analysis including cytology. 2. Consider MRI of the head to rule out brain metastases. The worsening headaches over the past month or two raise this concern. 3. Continue GI evaluation and treatment. 4. Continue oxygen. 5. Bronchodilators as needed. Job#: [id number] DISHA
[2017-08-29] MEDS: VANCOMYCIN 1GM/NS 250 ML 250 ML IV SCH ×2 (02:23→13:35)
[2017-08-29] MEDS: ALBUTEROL/IPRATROPIUM 3 ML NEB NEB SCH ×6 (03:00→23:12)
[2017-08-29] MEDS: PANTOPRAZOLE SOD 40 MG TABEC PO SCH (08:04)
[2017-08-29] MEDS: IRON-VITAMIN-MINERAL CAPSULE PO SCH ×2 (08:04→16:25)
[2017-08-29] MEDS: FLUOXETINE HCL 20 MG CAP PO SCH (08:04)
[2017-08-29] MEDS: ALPRAZOLAM 0.25 MG TAB PO SCH ×3 (08:04→22:02)
[2017-08-29] MEDS: INSULIN REGULAR, HUMAN 100 UNIT/1 ML 3ML VIAL SQ SCH ×4 (08:14→21:00)
[2017-08-29 08:28] LABS: BASOPHILS % 0.2 % (0.0-1.0); EOSINOPHILS # (AUTO) 0.3 (0.0-0.4); EOSINOPHILS % 5.2 % (0.0-6.0); HEMATOCRIT 29.3 % (34.2-44.1); HEMOGLOBIN 8.9 g/dL (12.0-16.0); LYMPHOCYTES # (AUTO) 0.6 (1.0-3.2); LYMPHOCYTES % 9.8 % (18.0-39.1); MEAN CORPUSCULAR HEMOGLOBIN 26.1 pg (28-32); MEAN CORPUSCULAR HGB CONC 30.4 g/dL (31-35); MEAN CORPUSCULAR VOLUME 85.9 fL (81-99); MONOCYTES # (AUTO) 0.5 (0.2-0.8); MONOCYTES % 8.6 % (4.4-11.3); NEUTROPHILS # (AUTO) 4.3 (2.1-6.9); PLATELET COUNT 110 x10e3/uL (140-360); RED BLOOD COUNT 3.41 x10e6/uL (3.6-5.1); RED CELL DISTRIBUTION WIDTH 19.7 % (11.7-14.4)
[2017-08-29 08:45] LABS: ALANINE AMINOTRANSFERASE 8 IU/L (0-55); ALBUMIN 2.6 g/dL (3.5-5.0); ALBUMIN/GLOBULIN RATIO 0.8 (0.8-2.0); ALKALINE PHOSPHATASE 71 IU/L (40-150); ANION GAP 11.1 mmol/L (8-16); BLOOD UREA NITROGEN 5 mg/dL (7-26); BUN/CREATININE RATIO 7 (6-25); CALCIUM 8.7 mg/dL (8.4-10.2); CARBON DIOXIDE 31 mmol/L (22-29); CHLORIDE 103 mmol/L (98-107); CREATININE, SERUM 0.71 mg/dL (0.57-1.11); EST GLOMERULAR FILTRATION RATE > 60 ML/MIN (60-); GLUCOSE 108 mg/dL (74-118); POTASSIUM 4.1 mmol/L (3.5-5.1); SODIUM 141 mmol/L (136-145)
[2017-08-29] MEDS: ACETAMINOPHEN/CODEINE 300MG - 30MG TAB PO PRN (11:19)
[2017-08-29] MEDS: HYDROMORPHONE 1MG/1ML INJ IV PRN ×3 (13:28→23:28)
[2017-08-29 14:53] LABS: EOSINOPHILS % (MANUAL) 2 % (0-7); LYMPHOCYTES % (MANUAL) 7 % (19-48); MONOCYTES % (MANUAL) 8 % (3.4-9.0); NEUTROPHILS % (MANUAL) 83 % (40-74)
[2017-08-29 14:56] LABS: PLATELET ESTIMATE ADEQUATE; PLATELET MORPHOLOGY COMMENT NORMAL
[2017-08-29 14:57] LABS: HYPOCHROMASIA SLIGHT; POIKILOCYTOSIS SLIGHT; RBC MORPHOLOGY COMMENT ABNORMAL
[2017-08-29 14:58] LABS: ANISOCYTOSIS SLIGHT
--- NOTE | 2017-08-29 18:04 | Consultation ---
DATE OF CONSULTATION: REQUESTING PHYSICIAN: Dr. Barajas. REASON FOR CONSULT: Possible atrial flutter. HISTORY OF PRESENT ILLNESS: Ms. Freeman is a 67-year-old lady with past medical history as listed below, was admitted with nausea, weight loss, and decreased intake. The patient had sepsis and being treated with antibiotics. Patient has lung cancer and is undergoing chemotherapy. She has had radiotherapy. On distribution systems superintendent, she was suspected to have atrial flutter, and so we are consulted. On review of the strips, it appears more like artifact than true atrial flutter. Patient denies any chest pain or palpitation. Does get shortness of breath. She gets a headache off and on. Patient has seen Dr. Chidi Hyatt in the past and was told that she had no major heart issues. REVIEW OF SYMPTOMS CONSTITUTIONAL: Has some fatigue and weakness. HEENT: Has headache. No blurring of vision, seizures, or syncope. Occasional dizziness. CARDIOVASCULAR: No chest pain. Has dyspnea. No orthopnea or PND. No palpitation. RESPIRATORY: No cough, fever, or expectoration. GI: No abdominal pain. Has nausea. Has weight loss and decreased intake. : No dysuria, frequency, or incontinence. ALLERGIES: IODINE. MEDICATIONS: See list. PAST MEDICAL HISTORY 1. History of squamous cell lung cancer, had received multiple treatments of radiotherapy and now is getting chemotherapy. 2. History of COPD. 3. History of GERD. 4. History of esophageal ulcer. 5. History of syphilis. PAST SURGICAL HISTORY: History of ventral herniorrhaphy in 2014, history of EGD and colonoscopy in 2015. SOCIAL HISTORY: Patient smokes half a pack a day and has smoked for more than 35 years. Does not drink alcohol. She follows up with Dr. Hardwick and Dr. Maxwell for cancer. FAMILY HISTORY: Noncontributory. PHYSICAL EXAMINATION GENERAL: Moderately built and nourished lady, awake, alert, not in any obvious distress. VITAL SIGNS: Heart rate is 81, blood pressure 116/59, respiratory rate 18, temperature is 98.6. HEENT: Atraumatic. NECK: No JVD or bruit. No thyromegaly or lymphadenopathy. CARDIOVASCULAR: First and second heart sounds heard. No murmurs, rubs, or gallops appreciated. CHEST: Decreased air entry at the bases. No adventitious sounds appreciated. ABDOMEN: Soft and nontender. EXTREMITIES: No edema. LABORATORY DATA: Sodium is 141, potassium is 4.1, chloride is 103, bicarb is 31, BUN is 5, creatinine 0.7, glucose 108. Hemoglobin is 8.9, hematocrit is 29.3, platelets are 110, white count is 5.5. EKG shows sinus rhythm at 80 beats per minute, normal axis, normal intervals, nonspecific ST-T changes. Review of rhythm strips shows mostly sinus rhythm with artifact. IMPRESSION 1. Sepsis. 2. Lung cancer. 3. Chronic obstructive pulmonary disease. 4. Suspected atrial flutter, probably artifact. 5. Tobacco use. 6. Anemia. PLAN 1. Patient's heart rate is under control. She is in sinus rhythm. 2. Review of strips shows mostly artifactual changes unlikely due to atrial flutter. 3. Get echocardiogram to assess LV function and valvular function. 4. Continue with current medications. 5. Check thyroid function tests. 6. Further cardiac workup depending on clinical course. I discussed my impression, plan and management with the patient and she understands. As always, I appreciate and thank you very much for the referral. Job#: [id number] VAS
[2017-08-29] MEDS: MELATONIN 3 MG TAB PO SCH (22:02)
[2017-08-30] MEDS: ALBUTEROL/IPRATROPIUM 3 ML NEB NEB SCH ×6 (02:08→23:00)
[2017-08-30] MEDS: VANCOMYCIN 1GM/NS 250 ML 250 ML IV SCH (02:15)
[2017-08-30] MEDS: HYDROMORPHONE 1MG/1ML INJ IV PRN ×4 (02:58→23:04)
[2017-08-30 04:48] VITALS: BP 113/59
[2017-08-30] MEDS: INSULIN REGULAR, HUMAN 100 UNIT/1 ML 3ML VIAL SQ SCH ×4 (07:30→21:00)
[2017-08-30 07:49] VITALS: BP 105/55
[2017-08-30 09:30] VITALS: BP 105/58
[2017-08-30] MEDS: ALPRAZOLAM 0.25 MG TAB PO SCH ×3 (09:30→23:04)
[2017-08-30] MEDS: FLUOXETINE HCL 20 MG CAP PO SCH (09:30)
[2017-08-30] MEDS: PANTOPRAZOLE SOD 40 MG TABEC PO SCH (09:30)
[2017-08-30] MEDS: IRON-VITAMIN-MINERAL CAPSULE PO SCH ×2 (09:30→17:30)
[2017-08-30] MEDS ORDERED: GADOBENATE DIMEGLUMINE 0 ML IV ONE (10:28)
[2017-08-30 12:27] VITALS: BP 131/63
[2017-08-30 16:45] VITALS: BP 117/70
[2017-08-30 18:18] LABS: BASOPHILS % 0.2 % (0.0-1.0); EOSINOPHILS # (AUTO) 0.2 (0.0-0.4); EOSINOPHILS % 4.9 % (0.0-6.0); HEMATOCRIT 33.9 % (34.2-44.1); HEMOGLOBIN 10.5 g/dL (12.0-16.0); LYMPHOCYTES # (AUTO) 0.4 (1.0-3.2); LYMPHOCYTES % 8.8 % (18.0-39.1); MEAN CORPUSCULAR HEMOGLOBIN 26.8 pg (28-32); MEAN CORPUSCULAR VOLUME 86.5 fL (81-99); MONOCYTES # (AUTO) 0.4 (0.2-0.8); MONOCYTES % 8.4 % (4.4-11.3); NEUTROPHILS # (AUTO) 3.8 (2.1-6.9); NEUTROPHILS % 77.5 % (38.7-80.0); PLATELET COUNT 111 x10e3/uL (140-360); RED BLOOD COUNT 3.92 x10e6/uL (3.6-5.1); RED CELL DISTRIBUTION WIDTH 18.9 % (11.7-14.4)
[2017-08-30 20:00] VITALS: BP 105/55
[2017-08-30] MEDS: MELATONIN 3 MG TAB PO SCH (23:04)
[2017-08-31] VITALS (7 sets, daily range): BP systolic 95–130; BP diastolic 50–61
[2017-08-31] MEDS: ALBUTEROL/IPRATROPIUM 3 ML NEB NEB SCH ×5 (03:00→20:45)
[2017-08-31] MEDS: INSULIN REGULAR, HUMAN 100 UNIT/1 ML 3ML VIAL SQ SCH ×4 (07:30→21:00)
[2017-08-31] MEDS: IRON-VITAMIN-MINERAL CAPSULE PO SCH ×2 (09:20→17:40)
[2017-08-31] MEDS: ALPRAZOLAM 0.25 MG TAB PO SCH ×3 (09:20→22:04)
[2017-08-31] MEDS: HYDROMORPHONE 1MG/1ML INJ IV PRN ×2 (09:20→22:44)
[2017-08-31] MEDS: VANCOMYCIN 1GM/NS 250 ML 250 ML IV SCH (09:20)
[2017-08-31] MEDS: FLUOXETINE HCL 20 MG CAP PO SCH (09:20)
[2017-08-31] MEDS: PANTOPRAZOLE SOD 40 MG TABEC PO SCH (09:20)
[2017-08-31] MEDS: MELATONIN 3 MG TAB PO SCH (22:04)
--- NOTE | 2017-08-31 22:12 | Discharge Summary ---
HISTORY OF PRESENT ILLNESS: Patient was hospitalized after presenting to the emergency room. She had told Dr. Coronel on arrival that she was here for abdominal pain. ER workup was negative. He recommended hospitalization for further assessment. According to the nurses notes, she was thailing and screaming on arrival, asking for anxiety meds. The patient reported to me later occasional mid back pain, denying abdominal pain. She reported nausea. PAST MEDICAL HISTORY: Squamous cell mediastinal cancer, status post radiotherapy and chemotherapy elsewhere previously. History has included COPD. The patient still smokes heavily. She also uses marijuana. History includes hiatal hernia. Diverticulosis. Chronic back pain with degenerative joint disease. Mood disorder. Chronic splenomegaly with prior splenic biopsy elsewhere, benign. Thrombocytopenia, chronic. Past history of low B-12 levels here. Hepatitis C antibody reactive with negative quantitative hepatis C viral studies on August 20, 2015. Osteoporosis. Negative stress scan and normal LV function on August 11, [address] Chidi Hyatt. History of esophageal ulcers. Database was ordered to be obtained and monitored. The patient was treated with analgesics, supported with IV fluids, proton pump inhibitors were added to the regimen. Pulmonary therapy was administered. The patient also resumed her prior to admission antianxiety regimen for history of chronic mood disorder. She had a Port-A-Cath on the right anterior chest which she requested be accessed. Two blood cultures from ER revealed methicillin-resistant Staphylococcus. Followup blood cultures times 2 were negative. Echocardiogram revealed no vegetations. The patient was kindly seen in consultation by multiple of her physicians who had known her from previous stays and from outpatient status including her radiotherapist, Dr. Maxwell, her oncologist, Dr. Hardwick who saw her for oncology followup and for progressive anemia while here and who ordered 2 units of packed cells while here. She was also kindly seen by her senior cytogenetic technologist, as I was paged by the hospital stating she was in atrial flutter. Impression per cardiology and myself and followup was that this was more likely baseline artifact. The patient had limited compliance while here, refusing recommended thoracentesis for pleural effusion. Patient after arrival here times 2 days stated she was experiencing significant headaches and requested increased analgesics which were administered by her consulting string top sealer, Dr. Grayson Hyatt. Patient refused recommended head CT or head MRI. The patient improved progressively while here. Course was complicated by intermittent cough and shortness of breath, which improved. The patient had intermittent mild hyperglycemia which was managed while here. Blood sugars remained below treatment threshold for days prior to discharge. Admission hemoglobin 8.3, fell to 7.8. Transfused 2 units. Hemoglobin was 10.5 on August 30. White counts remained normal. Platelet count 123,000 on admission. Hemoglobin August 24 had been 11.4. No gross bleeding seen. Hemoccult negative. The patient was seen by her sofa back upholsterer while here also. See notes and recommendations. Urinalysis clear. RPR nonreactive. Drug levels monitored with adjustment and administration of meds as needed. Admission glucose 183, globulin 4.5. Chemistries otherwise normal on arrival. Cardiac enzymes revealed no evidence of [place]. B12 level is 394 which is within normal limits. Hemoglobin A1c was 5.0. TSH was 0.79 normal. Urine culture mixed keily contamination. Admission chest x-ray August 24 ER stable mediastinal mass. ER performed a CT of the abdomen and pelvis with no acute abnormalities. Stable mild splenomegaly. Prior granulomatous changes. Degenerative disk changes in the lower thoracic and lumbosacral spine with facet hypertrophy. Small sac containing umbilical hernia. On August 27 chest x-ray with left effusion. Previously visualized lung mass. FINAL IMPRESSION: Multiple severe difficulties as mentioned above, her primarily squamous cell carcinoma involving the lung and mediastinum post radiotherapy and chemotherapy, Port-A-Cath. Initial blood culture with methicillin sensitive Staphylococcus, negative on followup cultures. The patient was given antibiotics empirically transiently here. Mixed keily, possible contamination on urine culture. See also infectious disease consultation and recommendations. Hypoxemia. COPD. Home O2 will be initiated. The patient has home nebulizer already and will continue q.4-6 hours with nebulizer bronchodilators and resume prior to admission home medications plus transient oral cephalosporins. History of esophagitis. Chronic splenomegaly. Mood disorder. Transient hyperglycemia with normal A1c. Osteoporosis. Degenerative joint disease involving the lumbosacral spine and dorsal spine. Heavy tobacco use. History of hepatitis C with negative quantitative studies on last study. Cephalgia. The patient declining head scans here. Pleural effusion. The patient declined thoracentesis here. Anemia improved post transfusion. See the patient's x ray equipment mechanic's consultation and recommendations. Low TIBC compatible with anemia of chronic disease with exacerbation while here. No gross bleeding seen and negative hemoccults. The patient was advised to follow up within a week on an outpatient basis. Prognosis is guarded. ANGIE FAIRCHILD MD Job#: [id number] GH
[2017-09-01 00:09] VITALS: BP 96/53
[2017-09-01] MEDS: ACETAMINOPHEN/CODEINE 300MG - 30MG TAB PO PRN ×2 (01:46→09:30)
[2017-09-01] MEDS: VANCOMYCIN 1GM/NS 250 ML 250 ML IV SCH (01:46)
[2017-09-01] MEDS: ALBUTEROL/IPRATROPIUM 3 ML NEB NEB SCH ×3 (03:00→07:00)
[2017-09-01 04:00] VITALS: BP 84/47
[2017-09-01] MEDS: INSULIN REGULAR, HUMAN 100 UNIT/1 ML 3ML VIAL SQ SCH (07:30)
[2017-09-01 07:45] VITALS: BP 92/54
[2017-09-01 08:00] VITALS: BP 92/54
[2017-09-01] MEDS: PANTOPRAZOLE SOD 40 MG TABEC PO SCH (08:38)
[2017-09-01] MEDS: IRON-VITAMIN-MINERAL CAPSULE PO SCH (08:39)
[2017-09-01] MEDS: ALPRAZOLAM 0.25 MG TAB PO SCH (08:39)
[2017-09-01] MEDS: FLUOXETINE HCL 20 MG CAP PO SCH (08:39)
[2017-09-01 09:48] VITALS: BP 132/61
--- NOTE | 2017-09-01 15:54 | Progress Note ---
DATE: September 01, 2017 SUBJECTIVE: The patient was seen and evaluated. She has been doing well. She is planning to go home today. OBJECTIVE VITAL SIGNS: Reviewed as per electronic medical record. HEAD: Atraumatic, normocephalic. NECK: Supple. CVS: S1 and S2 audible. RESPIRATORY: Decreased bilateral air entry. ABDOMEN: Positive bowel sounds. EXTREMITIES: No edema. NEURO: Patient is alert. LABORATORY DATA: Reviewed. ASSESSMENT AND PLAN: The patient with stage 3 lung cancer, status post concomitant chemo and radiation, admitted due to chronic obstructive pulmonary disease exacerbation and anemia. She had packed red blood cells transfusion with improved count. She is planning to go home today. I have advised her to follow up with me as an outpatient. Job#: [id number]
== END 2017-09-01 10:55 | disposition home or self-care (01) | DRG 190 ==
LOC: ER 14:41 → ERHOLD 17:53 → MED/SURG 23:03 → OBSVTOIN 08-27 14:54
PROVIDERS: ADMIT Internal Medicine; ATTEND Internal Medicine
PROC: 30233N1 Transfusion of Nonautologous Red Blood Cells into Peripheral Vein, Percutaneous Approach (ICD-10-PCS; principal; 2017-08-28)
DX: J44.1 Chronic obstructive pulmonary disease with (acute) exacerbation (principal); A41.9 Sepsis, unspecified organism; J90 Pleural effusion, not elsewhere classified; D69.6 Thrombocytopenia, unspecified; R13.10 Dysphagia, unspecified; D51.3 Other dietary vitamin B12 deficiency anemia; R16.1 Splenomegaly, not elsewhere classified; D02.20 Carcinoma in situ of unspecified bronchus and lung; D50.9 Iron deficiency anemia, unspecified; K21.9 Gastro-esophageal reflux disease without esophagitis; F17.210 Nicotine dependence, cigarettes, uncomplicated; M81.0 Age-related osteoporosis without current pathological fracture; F41.9 Anxiety disorder, unspecified; F32.9 Major depressive disorder, single episode, unspecified; Z53.29 Procedure and treatment not carried out because of patient's decision for other reasons; R09.02 Hypoxemia; M47.897 Other spondylosis, lumbosacral region; D63.8 Anemia in other chronic diseases classified elsewhere; G89.29 Other chronic pain; K20.9 Esophagitis, unspecified; K42.9 Umbilical hernia without obstruction or gangrene; I25.10 Atherosclerotic heart disease of native coronary artery without angina pectoris; K59.00 Constipation, unspecified; R73.9 Hyperglycemia, unspecified
CPT/HCPCS: 36415; 36430; 71045; 71046; 74176; 80048; 80053; 80202; 81001; 82270; 82550; 82553; 82607; 82948; 83036; 83540; 83605; 83690; 84443; 84466; 84484; 85014; 85018; 85025; 86592; 86850; 86900; 86920; 87040; 87071; 87086; 87205; 93005; 93306; 94640; 99284; G0378; J1170; J1642; J2405; J3370; J3420; J7030; J7050; P9016

== ENCOUNTER 2017-09-27 15:03 | Emergency (ER) | payer OTHER ==
[~2017-09-27] VITALS: Ht 160 cm; Wt 66.7 kg
[~2017-09-27 15:03] MED LIST changes: +XANAX0.5 MG PO
--- OUTSIDE RECORDS SUMMARY | 2017-09-27 15:06 | XMS REPORT | Continuity of Care Document ---
Author Author [facility] Organization [facility] Address [address] [place] [address] Phone Unavailable Care Team Providers Care Crisis Clinician Name Role Phone ANGIE FAIRCHILD MD PCP Insurance Providers Guarantor Elis Freeman Address [address] [place] [address] Email [email or web address] [facility] Policy Number [id number] Subscriber's Name Elis Freeman Relationship 18 Self / Same As Patient Group Number [id number] Group Name [id number] Effective Date 17 Advance Directives Directive Response Recorded Date/Time Does the patient have an advance directive? Yes 08/24/17 11:31pm If yes, is advance directive on file with [facility]? No 08/24/17 11:31pm If not on file with [facility] will patient provide a copy? Yes 08/24/17 11:31pm Do you have a Directive to Physician? No 08/24/17 5:51pm Do you have a Medical Power of Delivery Table Feeder? No 08/24/17 5:51pm Do you have an out of hospital Do Not Resuscitate Order? No 08/24/17 5:51pm Do you have any special needs we should be aware of? No 08/24/17 5:51pm Do you have a support person here with you today? Yes 08/24/17 5:51pm Did patient receive Notice of Privacy Practices? Yes 08/24/17 5:51pm Did patient receive patient rights and responsibilities? Yes 08/24/17 5:51pm Problems Medical Problem Onset Date Status Abdominal pain Unknown COPD exacerbation Unknown Dehydration 10/26/2014 Acute Diverticulitis 02/14/2015 Acute Hypokalemia 10/26/2014 Acute Hyponatremia 10/26/2014 Acute Hypoxia Unknown Lung cancer Unknown Renal failure 10/26/2014 Acute Vomiting 10/26/2014 Acute Medications Current Home Medications Medication Dose Units Route Directions Days Qty Instructions Start Date Alprazolam (Xanax) 0.5 Mg Tablet 1 Tab Oral Three Times A Day Melatonin 3 Mg Tablet.er 10 Mg Oral Bedtime Methadone Hcl 10 Mg Tablet 10 Mg Oral Every 6 Hours as needed for Pain Past Home Medications Medication Directions Ordered Status Acetaminophen/Codeine Phosphate (Tylenol # 3*) 1 Ea Tab, 1 Tab Oral Every 8 Hours as needed for Pain Discontinued Alprazolam (Xanax) 0.25 Mg Tablet, 1 Tab Oral Three Times A Day as needed for Anxiety Discontinued Esomeprazole Magnesium (Nexium) 40 Mg Capsule.dr, 1 Tab Oral Daily Discontinued Famotidine 20 Mg Tab, 20 Mg Oral Bedtime Discontinued Fluoxetine Hcl 20 Mg Capsule, 2 Cap Oral Daily Discontinued Naproxen 250 Mg Tablet, 500 Mg Oral Twice A Day Discontinued Pantoprazole Sodium (Protonix) 40 Mg Tablet.dr, 40 Mg Oral Every Morning Discontinued Quetiapine Fumarate (Seroquel) 50 Mg Tablet, 1 Tab Oral Daily as needed for Hs Discontinued Quetiapine Fumarate 100 Mg Tablet, 100 Mg Oral Bedtime Discontinued Sucralfate (Carafate) 1 Gm Tablet, 1 Tab Oral Three Times A Day Discontinued Tramadol Hcl (Ultram 50MG*) 50 Mg Tab, 50 Mg Oral Discontinued Trazodone Hcl 50 Mg Tablet, 50 Mg Oral Daily Discontinued Social History Social History Problem Response Recorded Date/Time Onset Date Status Hx Psychiatric Problems No 08/24/2017 11:31pm Not Applicable Not Applicable Hx Eating Disorder No 08/24/2017 11:31pm Not Applicable Not Applicable Hx Substance Use Disorder Yes 08/24/2017 11:31pm Not Applicable Not Applicable Hx Depression Yes 08/24/2017 11:31pm Not Applicable Not Applicable Hx Alcohol Use No 08/24/2017 11:31pm Not Applicable Not Applicable Hx Substance Use Treatment No 08/24/2017 11:31pm Not Applicable Not Applicable Hx Physical Abuse No 08/24/2017 11:31pm Not Applicable Not Applicable Smoking Status Start Date Stop Date Current every day smoker Hospital Discharge Instructions No hospital discharge instruction information available. Plan of Care Discharge Date 09/01/17 10:55am Disposition HOME, SELF-CARE Instructions/Education Provided Cancer Pain Prescriptions See Medication Section Referrals MADYSON VALVERDE MD (Pulmonary) Entered Date: 09/01/2017 9:09am Address: [address] [place] [id number] Note: FOLLOW UP WITH DR. VALVERDE REGARDING THORACENTESIS DECISION Functional Status Query Response Date Recorded Assistive Devices Standard Walker August 24, 2017 11:43pm Ambulation Ability Independent August 24, 2017 11:43pm Toileting Ability Independent September 01, 2017 8:38am Allergies, Adverse Reactions, Alerts Allergen Type Severity Reaction Status Last Updated soap Allergy Intermediate rash Active 06/02/17 Povidone-iodine Allergy Intermediate rash Active 06/02/17 Immunizations No immunization information available. Vital Signs Acute Vital Signs Vital Response Date/Time Temperature (Fahrenheit) 96.7 degrees F (97.6 - 99.5) 09/01/2017 8:00am Pulse Pulse Rate (adult) 70 bpm (60 - 90) 09/01/2017 8:00am Respiratory Rate 18 bpm (12 - 24) 09/01/2017 8:00am Blood Pressure 132/61 mm Hg 09/01/2017 9:48am Height 5 ft 3 in 08/24/2017 1:54pm Weight 147 lb 08/24/2017 11:20pm Body Mass Index 26.0 kg/m^2 08/24/2017 11:31pm Results Laboratory Results Test Name Result Units Flags Reference Collection Date/Time Result Date/ Time Comments Urine Calcium Oxalate Crystals FEW FEW 12/16/2016 1:29pm 12/16/2016 2 :50pm Urine Mucus FEW H RARE 12/16/2016 1:29pm 12/16/2016 2:50pm Amylase Level 28 U/L 25-125 03/27/2017 6:31am 03/27/2017 7:13am Blast Cells % 1 04/07/2017 5:15am 04/07/2017 7:42am Prothrombin Time 15.3 seconds H 11.9-14.5 06/02/2017 10:38am 06/02/2017 11:34am Prothromb Time International Ratio 1.15 06/02/2017 10:38am 2016 11:34am Oral Anticoagulant Therapy INR Values: 1. Low Intensity Therapy 1.5 - 2.0 2. Moderate Intensity Therapy 2.0 - 3.0 3. High Intensity Therapy(1) 2.5 - 3.5 4. High Intensity Therapy(2) 3.0 - 4.0 5. Panic Value INR > 5.0 Activated Partial Thromboplast Time 34.7 seconds 23.8-35.5 06/02/2017 10 :38am 06/02/2017 11:34am Influenza Virus Types A,B Antigen NEGATIVE NEGATIVE 06/02/2017 11: 00am 06/02/2017 11:55am B-Type Natriuretic Peptide 561.2 pg/mL H 0-100 06/03/2017 6:25am 2016 7:25am Treponema pallidum Ab (FTA-ABS) Reactive H Non Reactive 06/07/2017 6: 37pm 06/11/2017 6:04am Performed at: - [facility] [id number] Fairing Man: Santos Alejandra MD, Phone: [phone] White Blood Count 4.86 x10e3/uL 4.8-10.8 08/30/2017 6:05pm 08/30/2017 6 :18pm Red Blood Count 3.92 x10e6/uL 3.6-5.1 08/30/2017 6:05pm 08/30/2017 6: 18pm Hemoglobin 10.5 g/dL L 12.0-16.0 08/30/2017 6:05pm 08/30/2017 6:18pm Hematocrit 33.9 % L 34.2-44.1 08/30/2017 6:05pm 08/30/2017 6:18pm Mean Corpuscular Volume 86.5 fL 81-99 08/30/2017 6:05pm 08/30/2017 6: 18pm Mean Corpuscular Hemoglobin 26.8 pg L 28-32 08/30/2017 6:05pm 2017 6:18pm Mean Corpuscular Hemoglobin Concent 31.0 g/dL 31-35 08/30/2017 6:05pm 08/30/2017 6:18pm Red Cell Distribution Width 18.9 % H 11.7-14.4 08/30/2017 6:05pm 2017 6:18pm Platelet Count 111 x10e3/uL L 140-360 08/30/2017 6:05pm 08/30/2017 6: 18pm Neutrophils (%) (Auto) 77.5 % 38.7-80.0 08/30/2017 6:05pm 08/30/2017 6: 18pm Lymphocytes (%) (Auto) 8.8 % L 18.0-39.1 08/30/2017 6:05pm 08/30/2017 6: 18pm Monocytes (%) (Auto) 8.4 % 4.4-11.3 08/30/2017 6:05pm 08/30/2017 6: 18pm Eosinophils (%) (Auto) 4.9 % 0.0-6.0 08/30/2017 6:05pm 08/30/2017 6: 18pm Basophils (%) (Auto) 0.2 % 0.0-1.0 08/30/2017 6:05pm 08/30/2017 6:18pm IM GRANULOCYTES % 0.2 % 0.0-1.0 08/30/2017 6:05pm 08/30/2017 6:18pm Neutrophils # (Auto) 3.8 2.1-6.9 08/30/2017 6:05pm 08/30/2017 6:18pm Lymphocytes # (Auto) 0.4 L 1.0-3.2 08/30/2017 6:05pm 08/30/2017 6: 18pm Monocytes # (Auto) 0.4 0.2-0.8 08/30/2017 6:05pm 08/30/2017 6:18pm Eosinophils # (Auto) 0.2 0.0-0.4 08/30/2017 6:05pm 08/30/2017 6:18pm Basophils # (Auto) 0.0 0.0-0.1 08/30/2017 6:05pm 08/30/2017 6:18pm Absolute Immature Granulocyte (auto 0.01 x10e3/uL 0-0.1 08/30/2017 6: 05pm 08/30/2017 6:18pm Differential Total Cells Counted 100 08/29/2017 8:00am 08/29/2017 2 :59pm Neutrophils % (Manual) 83 % H 40-74 08/29/2017 8:00am 08/29/2017 2:59pm Lymphocytes % (Manual) 7 % L 19-48 08/29/2017 8:00am 08/29/2017 2:59pm Monocytes % (Manual) 8 % 3.4-9.0 08/29/2017 8:00am 08/29/2017 2:59pm Eosinophils % (Manual) 2 % 0-7 08/29/2017 8:00am 08/29/2017 2:59pm Platelet Estimate ADEQUATE 08/29/2017 8:00am 08/29/2017 2:59pm Platelet Morphology Comment NORMAL 08/29/2017 8:00am 08/29/2017 2: 59pm Hypochromasia SLIGHT 08/29/2017 8:00am 08/29/2017 2:59pm Poikilocytosis SLIGHT 08/29/2017 8:00am 08/29/2017 2:59pm Anisocytosis SLIGHT 08/29/2017 8:00am 08/29/2017 2:59pm Red Cell Morphology Comment ABNORMAL 08/29/2017 8:00am 08/29/2017 2 :59pm Urine Color YELLOW YELLOW 08/26/2017 8:08pm 08/26/2017 8:20pm Urine Clarity CLEAR CLEAR 08/26/2017 8:08pm 08/26/2017 8:20pm Urine Specific [place] 1.020 1.010-1.025 08/26/2017 8:08pm 2017 8:20pm Urine pH 5 5 - 7 08/26/2017 8:08pm 08/26/2017 8:20pm Urine Leukocyte Esterase NEGATIVE NEGATIVE 08/26/2017 8:08pm 2017 8:20pm Urine Nitrite NEGATIVE NEGATIVE 08/26/2017 8:08pm 08/26/2017 8:20pm Urine Protein NEGATIVE NEGATIVE 08/26/2017 8:08pm 08/26/2017 8:20pm Urine Glucose (UA) NEGATIVE NEGATIVE 08/26/2017 8:08pm 08/26/2017 8: 20pm Urine Ketones NEGATIVE NEGATIVE 08/26/2017 8:08pm 08/26/2017 8:20pm Urine Urobilinogen 0.2 mg/dL 0.2 - 1 08/26/2017 8:08pm 08/26/2017 8: 20pm Urine Bilirubin NEGATIVE NEGATIVE 08/26/2017 8:08pm 08/26/2017 8: 20pm Urine Blood NEGATIVE NEGATIVE 08/26/2017 8:08pm 08/26/2017 8:20pm Urine WBC NONE /HPF 0-5 08/26/2017 8:08pm 08/26/2017 8:35pm Urine RBC NONE /HPF 0-5 08/26/2017 8:08pm 08/26/2017 8:35pm Urine Bacteria NONE /HPF NONE 08/26/2017 8:08pm 08/26/2017 8:35pm Urine Epithelial Cells FEW /LPF NONE 08/26/2017 8:08pm 08/26/2017 8: 35pm Sodium Level 141 mmol/L 136-145 08/29/2017 8:00am 08/29/2017 8:45am Potassium Level 4.1 mmol/L 3.5-5.1 08/29/2017 8:00am 08/29/2017 8:45am Chloride Level 103 mmol/L 98-107 08/29/2017 8:00am 08/29/2017 8:45am Carbon Dioxide Level 31 mmol/L H 22-08/29/2017 8:00am 08/29/2017 8: 45am Anion Gap 11.1 mmol/L 8-08/29/2017 8:00am 08/29/2017 8:45am Blood Urea Nitrogen 5 mg/dL L 7-08/29/2017 8:00am 08/29/2017 8:45am Creatinine 0.71 mg/dL 0.57-1.11 08/29/2017 8:00am 08/29/2017 8:45am BUN/Creatinine Ratio 7 6-08/29/2017 8:00am 08/29/2017 8:45am Estimat Glomerular Filtration Rate > 60 ML/MIN 60- 08/29/2017 8:00am 8:45am Ranges were taken from the National Kidney Disease Education Program and the National Kidney Foundation literature. Reference ranges: 60 or greater: Normal 16-59 (for 3 consecutive months): Chronic kidney disease 15 or less: Kidney failure Glucose Level 108 mg/dL 74-118 08/29/2017 8:00am 08/29/2017 8:45am Calcium Level 8.7 mg/dL 8.4-10.2 08/29/2017 8:00am 08/29/2017 8:45am Bedside Glucose 104 mg/dL 70-120 09/01/2017 7:19am 09/01/2017 7:49am Meter ID: [id number] Hemoglobin A1c Percent 5.0 % 4.0-7.0 08/27/2017 5:45pm 08/27/2017 6: 10pm Lactic Acid Level 14.7 MG/DL 4.5-19.8 08/24/2017 2:40pm 08/24/2017 4: 16pm Iron Level 26 ug/dL L 50-170 2017 8:40am 2017 1:04pm Total Iron Binding Capacity 211 ug/dL L 261-478 2017 8:40am 2017 1:04pm Percent Iron Saturation 12 % L 15-50 2017 8:40am 2017 1: 04pm Transferrin 151 mg/dL L 180-382 2017 8:40am 2017 1:04pm Total Bilirubin 0.4 mg/dL 0.2-1.2 08/29/2017 8:00am 08/29/2017 8:45am Aspartate Amino Transf (AST/SGOT) 12 IU/L 5-34 08/29/2017 8:00am 2017 8:45am Alanine Aminotransferase (ALT/SGPT) 8 IU/L 0-55 08/29/2017 8:00am 08/29 8:45am Total Protein 5.9 g/dL L 6.5-8.1 08/29/2017 8:00am 08/29/2017 8:45am Albumin 2.6 g/dL L 3.5-5.0 08/29/2017 8:00am 08/29/2017 8:45am Globulin 3.3 g/dL 2.3-3.5 08/29/2017 8:00am 08/29/2017 8:45am Albumin/Globulin Ratio 0.8 0.8-2.0 08/29/2017 8:00am 08/29/2017 8: 45am Alkaline Phosphatase 71 IU/L 40-150 08/29/2017 8:00am 08/29/2017 8: 45am Creatine Kinase 24 IU/L L 29-168 2017 8:37am 2017 9:53am Creatine Kinase MB 0.80 ng/mL 0-5.0 2017 8:37am 2017 9: 53am Troponin I < 0.001 ng/mL 0-0.300 2017 8:37am 2017 9:53am Lipase 10 U/L 8-78 08/24/2017 2:40pm 08/24/2017 3:19pm Vitamin B12 Level 394 pg/mL 213-816 2017 8:37am 2017 2: 01pm Thyroid Stimulating Hormone (TSH) 0.793 uIU/mL 0.350-4.940 08/29/2017 8: 00am 08/29/2017 12:17pm Vancomycin Level Trough 14.8 ug/mL *H 5.0-10.0 08/30/2017 1:35am 2017 2:09am Results called to SIERRA CASTRO RN/MS at 0206 on 08/30/17 by Rosalie Moore. RB OK. Rapid Plasma Reagin Non Reactive Non Reactive 08/26/2017 6:58am 08/27 6:31am Performed at: - [facility] [address] [id number] Fairing Man: Gil Santos MD, Phone: [phone] Stool Occult Blood NEGATIVE NEGATIVE 08/28/2017 8:40pm 08/28/2017 9: 37pm Microbiology Results Procedure Source Organism/Result Collection Date/Time Result Date/Time Result Status Blood Culture Blood STAPHYLOCOCCUS SP COAG NEG 08/24/2017 2:15pm 2017 8:57am Final Blood Culture Blood NO GROWTH AFTER 5 DAYS, FINAL REPORT 08/26/2017 2:05am 08/31/2017 2:36am Final Procedures Procedure Status Date Provider(s) CT of abdomen and pelvis without contrast Active 03/27/17 BELL CHILDERS MD Computed tomography of chest with contrast Active 06/02/17 NORMAN SRINIVASAN MD X-ray of chest, single view Active 08/24/[address] of abdomen and pelvis without contrast Active 08/24/17 BERNIE PEREZ MD X-ray of chest, two views Active 08/27/17 ANGIE FAIRCHILD MD Encounters Encounter Location Arrival/Admit Date Discharge/Depart Date Attending Provider Discharged Inpatient [facility] 08/27/17 2:54pm 09/01/17 10:55am ANGIE FAIRCHILD MD Discharged Inpatient [facility] 06/04/17 10:48am 11:35am ANGIE FAIRCHILD MD Departed Emergency Room [facility] 04/07/17 5:04am 7:01am BELL CHILDERS MD Departed Emergency Room [facility] 03/27/17 6:15am 9:31am BERNIE CARBAJAL MD Discharged Inpatient (obs) [facility] 12/16/16 6:37pm 5:05pm ANGIE FAIRCHILD MD
[2017-09-27] MEDS ORDERED: ASPIRIN 81 MG CHEW TAB PO ONE (16:30)
[2017-09-27 16:43] LABS: BASOPHILS % 0.2 % (0.0-1.0); EOSINOPHILS # (AUTO) 0.1 (0.0-0.4); EOSINOPHILS % 1.1 % (0.0-6.0); HEMATOCRIT 28.3 % (34.2-44.1); HEMOGLOBIN 8.8 g/dL (12.0-16.0); LYMPHOCYTES # (AUTO) 0.5 (1.0-3.2); LYMPHOCYTES % 8.7 % (18.0-39.1); MEAN CORPUSCULAR HEMOGLOBIN 26.7 pg (28-32); MEAN CORPUSCULAR HGB CONC 31.1 g/dL (31-35); MEAN CORPUSCULAR VOLUME 85.8 fL (81-99); MONOCYTES # (AUTO) 0.5 (0.2-0.8); MONOCYTES % 7.7 % (4.4-11.3); NEUTROPHILS # (AUTO) 5.1 (2.1-6.9); PLATELET COUNT 118 x10e3/uL (140-360); RED CELL DISTRIBUTION WIDTH 18.3 % (11.7-14.4)
[2017-09-27 16:50] LABS: INR 1.3; PROTHROMBIN TIME 15.2 seconds (11.9-14.5)
[2017-09-27 17:00] LABS: ALANINE AMINOTRANSFERASE 10 IU/L (0-55); ALBUMIN 2.7 g/dL (3.5-5.0); ALBUMIN/GLOBULIN RATIO 0.7 (0.8-2.0); ALKALINE PHOSPHATASE 72 IU/L (40-150); ANION GAP 9.7 mmol/L (8-16); BLOOD UREA NITROGEN 5 mg/dL (7-26); BUN/CREATININE RATIO 7 (6-25); CALCIUM 9.2 mg/dL (8.4-10.2); CARBON DIOXIDE 31 mmol/L (22-29); CHLORIDE 102 mmol/L (98-107); CREATINE KINASE 31 IU/L (29-168); EST GLOMERULAR FILTRATION RATE > 60 ML/MIN (60-); GLUCOSE 102 mg/dL (74-118); POTASSIUM 3.7 mmol/L (3.5-5.1); SODIUM 139 mmol/L (136-145)
[2017-09-27] MEDS ORDERED: METHYLPREDNISOLONE SOD SUCC 125 MG/2ML VIAL IV ONE (17:00)
[2017-09-27] MEDS ORDERED: LORAZEPAM INJ 2 MG/ML VIAL IV ONE (17:00)
[2017-09-27] MEDS ORDERED: ALBUTEROL/IPRATROPIUM 3 ML NEB NEB ONE (17:00)
--- NOTE | 2017-09-27 17:17 | Diagnostic Imaging Report ---
PROCEDURE: A single AP view of the chest. COMPARISON: Chest x-ray 08/27/2017. CT abdomen pelvis 08/24/2017 INDICATIONS: SHORT OF BREATH FINDINGS: Lines/tubes: Right-sided portacatheter with tip at the jugular junction.. Lungs: The right lung is well-inflated. Elevated left hemidiaphragm. Multiple scattered tiny calcified granuloma. Increase in diffuse hazy opacification bilateral lungs with mildly prominent vessels consistent with interstitial edema. Prominent left suprahilar region, likely related to elevated left hemidiaphragm. Pleura: There is no pleural effusion or pneumothorax. Heart and mediastinum: The heart and the mediastinum are unremarkable. Bones: No acute bony abnormality. IMPRESSION: Mild interstitial edema. Dictated by: Jacob Barron M.D. on 09/27/2017 at 17:17 Electronically approved by: Jacob Barron M.D. on 09/27/2017 at 17:17
[2017-09-27] MEDS ORDERED: PROZAC20 MG PO (17:31)
[2017-09-27] MEDS ORDERED: pro-air INH (17:31)
[2017-09-27] MEDS ORDERED: TYLENOL WITH C1 EACH PO (17:31)
[2017-09-27] MEDS ORDERED: OMEPRAZOLE40 MG PO (17:31)
[2017-09-27] MEDS ORDERED: ALPRAZOLAM0.25 M1 PO (17:31)
[2017-09-27] MEDS ORDERED: FUROSEMIDE INJ 10 MG/ML 4 ML VIAL IV ONE (18:00)
[2017-09-27] MEDS ORDERED: CLONAZEPAM 1 MG TAB PO ONE (18:00)
[2017-09-27 18:59] VITALS: BP 132/84
== END 2017-09-27 19:00 | disposition home or self-care (01) ==
LOC: ER 15:03
DX: F41.0 Panic disorder [episodic paroxysmal anxiety] (principal); C34.90 Malignant neoplasm of unspecified part of unspecified bronchus or lung; F17.200 Nicotine dependence, unspecified, uncomplicated; J44.9 Chronic obstructive pulmonary disease, unspecified; F19.239 Other psychoactive substance dependence with withdrawal, unspecified
CPT/HCPCS: 36415; 71045; 80053; 82550; 82553; 83880; 84484; 85025; 85610; 85730; 99284; J1940; J2060; J2930

== ENCOUNTER → 2017-12-30 | Outpatient (CLI) | payer MEDICARE, OTHER ==
[~2017-12-30] MED LIST changes: +ALPRAZOLAM0.25 M1 PO; +AMBIEN5 MG PO; +FENTANYL CITRATE/PF 100MCG/2 ML INJ ONE; +GABAPENTIN300 MG PO; +IBUPROFEN400 MG PO; +LIDOCAINE HCL 1% LOCAL INJ 20 ML VIAL ONE; +MIDAZOLAM HCL 2 MG/2 ML VIAL ONE; +MS CONTIN15 MG PO; +NORCO 5-325 TA1 EACH PO; +OMEPRAZOLE40 MG PO; +PROCHLORPERAZIN10 MG; +PROZAC20 MG PO; +SODIUM CHLORIDE 0.9% 500ML 0 ML ONE; +SUCRALFATE1 GM PO; +TYLENOL WITH C1 EACH PO; +pro-air INH
[2017-12-30 09:19] LABS: INR 1.33; PROTHROMBIN TIME 15.5 seconds (11.9-14.5)
[2017-12-30 09:20] LABS: PARTIAL THROMBOPLASTIN TIME 29.1 seconds (23.8-35.5)
--- NOTE | 2017-12-30 12:31 | Diagnostic Imaging Report ---
PROCEDURE:X-RAY CHEST, ONE VIEW COMPARISON:09/27/2017. INDICATIONS:POST LUNG BIOPSY FINDINGS: Refer to conclusion CONCLUSION: Status post CT-guided biopsy of left upper lobe paramediastinal mass without evidence of pneumothorax. Left-sided volume loss related to hemidiaphragmatic elevation, and right sided central venous port are unchanged in appearance. Right hemithorax is clear. Dictated by: Chidi Ospina M.D. on 12/30/2017 at 12:35 Electronically approved by: Chidi Ospina M.D. on 12/30/2017 at 12:35
--- NOTE | 2018-01-12 16:01 | Diagnostic Imaging Report ---
PROCEDURE:CT GUIDED NEEDLE PLACEMENT; fine needle aspiration and core biopsies of a left upper lobe paramediastinal mass COMPARISON:Images from a CT scan performed at an outside facility 11/10/2017. Preprocedure diagnosis: Left upper lobe paramediastinal mass Post procedure diagnosis: Left upper lobe paramediastinal mass Director Food Safety: Chidi Ospina M.D. Estimated blood loss: Minimal Blood products administered: None Specimens: Fine needle aspiration specimen x1, core biopsy specimen x6 Implants/grafts: None Sedation/anesthesia: Fentanyl 75 mcg intravenous. The patient's heart rate and pulse oximetry were continuously monitored by the interventional radiology nurse. Blood pressure was monitored at 5 minute intervals. Complications: No immediate Dose-area product : 1157.8 mGy-cm Contrast used: None Procedure in detail: Informed consent for the procedure was obtained from the patient and documented in the medical record after discussion of risks and benefits. The patient was placed in the supine position on the CT couch. A marker grid was placed over the left anterior upper chest. Limited CT scan of the upper chest was performed and a suitable percutaneous approach to the left upper lobe paramediastinal mass was identified and the overlying skin was marked. The left anterior chest wall was then prepped and draped in standard sterile fashion. 1% lidocaine was infiltrated into the skin and subcutaneous tissues for local anesthesia. Then, under intermittent CT guidance, a 16 gauge needle guide was advanced to the periphery of the mass. A single fine needle aspiration specimen was obtained coaxially using a 22 gauge needle. Subsequently, a total of 6 core biopsies were obtained using an 18 gauge, 2 cm throw core biopsy apparatus. [employer] Supervisor images showing deployment position of the biopsy needle were archived in PACS. Specimens were submitted to on-site pathology personnel. At the conclusion of the sampling the needle guide was removed and a sterile, occlusive dressing was applied. The patient tolerated the procedure well without immediate complication. CONCLUSION: Successful CT-guided fine needle aspiration and core biopsies of a left upper lobe paramediastinal mass as above. Dictated by: Chidi Ospina M.D. on 12/30/2017 at 12:14 Electronically approved by: Chidi Ospina M.D. on 12/30/2017 at 12:14
== END ==
LOC: CT 08:22
PROVIDERS: ATTEND Internal Medicine Critical Care Medicine
DX: R91.8 Other nonspecific abnormal finding of lung field (principal)
CPT/HCPCS: 32405; 36415; 71045; 77012; 85049; 85610; 85730; 88112; 88173; 88305; J2001; J2250; 10022; 88172; 99152; 99153; J7040

== ENCOUNTER 2018-03-21 11:37 | Inpatient (IN) | payer MEDICARE, OTHER ==
[~2018-03-21] VITALS: Ht 160 cm; Wt 60.5 kg
[~2018-03-21 11:37] MED LIST changes: -AMBIEN5 MG PO; -FENTANYL CITRATE/PF 100MCG/2 ML INJ ONE; -GABAPENTIN300 MG PO; -IBUPROFEN400 MG PO; -LIDOCAINE HCL 1% LOCAL INJ 20 ML VIAL ONE; -MIDAZOLAM HCL 2 MG/2 ML VIAL ONE; -MS CONTIN15 MG PO; -NORCO 5-325 TA1 EACH PO; -PROCHLORPERAZIN10 MG; -SODIUM CHLORIDE 0.9% 500ML 0 ML ONE; -SUCRALFATE1 GM PO
[2018-03-21] MEDS: SODIUM CHLORIDE 0.9% 1000ML 1,000 ML IV STA ×2 (12:00→13:58)
--- NOTE | 2018-03-21 12:59 | Diagnostic Imaging Report ---
Examination: Single AP view of the chest. COMPARISON: None. INDICATION: December 22, 2017 DISCUSSION: Lines/tubes: Right chest port tip see. Lungs: Volume loss left hemithorax with probable small effusion. Scattered bilateral pulmonary nodules. Pleura: There is no pleural effusion or pneumothorax. Heart and mediastinum: Left perimediastinal mass that are visualized on CT. Bones and soft tissues: No acute bony abnormalities. Degenerative changes in the thoracic spine. IMPRESSION: Stable small left effusion and atelectasis. Left perimediastinal mass better seen on CT. Signed by: Dr. Junito Espinosa M.D. on 03/21/2018 12:55 PM
[2018-03-21 13:44] LABS: BASOPHILS % 0.2 % (0.0-1.0); EOSINOPHILS % 0.2 % (0.0-6.0); HEMATOCRIT 31.9 % (34.2-44.1); HEMOGLOBIN 9.4 g/dL (12.0-16.0); LYMPHOCYTES # (AUTO) 0.6 (1.0-3.2); MEAN CORPUSCULAR HEMOGLOBIN 25.8 pg (28-32); MEAN CORPUSCULAR HGB CONC 29.5 g/dL (31-35); MEAN CORPUSCULAR VOLUME 87.6 fL (81-99); MONOCYTES # (AUTO) 0.8 (0.2-0.8); MONOCYTES % 8.8 % (4.4-11.3); NEUTROPHILS # (AUTO) 7.7 (2.1-6.9); NEUTROPHILS % 84.5 % (38.7-80.0); PLATELET COUNT 200 x10e3/uL (140-360); RED BLOOD COUNT 3.64 x10e6/uL (3.6-5.1); RED CELL DISTRIBUTION WIDTH 17.2 % (11.7-14.4)
[2018-03-21 13:57] LABS: CLARITY,URINE CLEAR (CLEAR); COLOR,URINE YELLOW (YELLOW); KETONES,URINE NEGATIVE (NEGATIVE); LEUKOCYTE ESTERASE ,URINE NEGATIVE (NEGATIVE); NITRITE,URINE NEGATIVE (NEGATIVE); PROTEIN,URINE DIPSTICK NEGATIVE (NEGATIVE); URINE UROBILINOGEN 0.2 mg/dL (0.2 - 1)
[2018-03-21 13:58] LABS: BILIRUBIN,URINE NEGATIVE (NEGATIVE)
[2018-03-21 14:06] LABS: ALANINE AMINOTRANSFERASE 16 IU/L (0-55); ALBUMIN 2.8 g/dL (3.5-5.0); ALBUMIN/GLOBULIN RATIO 0.7 (0.8-2.0); ALKALINE PHOSPHATASE 102 IU/L (40-150); ANION GAP 16.2 mmol/L (8-16); BLOOD UREA NITROGEN 10 mg/dL (7-26); BUN/CREATININE RATIO 12 (6-25); CARBON DIOXIDE 25 mmol/L (22-29); CHLORIDE 96 mmol/L (98-107); CREATINE KINASE 16 IU/L (29-168); CREATININE, SERUM 0.81 mg/dL (0.57-1.11); EST GLOMERULAR FILTRATION RATE > 60 ML/MIN (60-); GLUCOSE 151 mg/dL (74-118); POTASSIUM 3.2 mmol/L (3.5-5.1); SODIUM 134 mmol/L (136-145)
[2018-03-21 14:06] LABS: BACTERIA,URINE MODERATE /HPF; EPITHELIAL CELLS,URINE MANY /LPF; RBC,URINE 0-5 /HPF (0-5); TRANSITIONAL EPI CELLS,URINE FEW; WBC,URINE (MAN) 0-5 /HPF (0-5)
[2018-03-21] MEDS ORDERED: AMBIEN5 MG PO (15:46)
[2018-03-21] MEDS ORDERED: SUCRALFATE1 GM PO (15:46)
[2018-03-21] MEDS ORDERED: MS CONTIN15 MG PO (15:46)
[2018-03-21] MEDS ORDERED: NORCO 5-325 TA1 EACH PO (15:46)
[2018-03-21] MEDS ORDERED: IBUPROFEN400 MG PO (15:46)
[2018-03-21] MEDS ORDERED: GABAPENTIN300 MG PO (15:46)
[2018-03-21] MEDS ORDERED: PROCHLORPERAZIN10 MG (15:46)
[2018-03-21] MEDS ORDERED: ENOXAPARIN SODIUM INJ 100 MG/ML SYR SC SCH (16:30)
[2018-03-21] MEDS ORDERED: DIPHENHYDRAMINE HCL INJ 50 MG/ML VIAL IV ONE (16:30)
[2018-03-21] MEDS ORDERED: METHYLPREDNISOLONE SOD SUCC 125 MG/2ML VIAL IV ONE (16:30)
[2018-03-21] MEDS ORDERED: ENOXAPARIN INJ 80 MG/0.8 ML SYR SC SCH (17:00)
[2018-03-21] MEDS ORDERED: POTASSIUM CHLORIDE 10 MEQ TABCR PO NR (18:30)
[2018-03-21 18:59] LABS: % IRON SATURATION 19 % (15-50); IRON 35 ug/dL (50-170); TOTAL IRON BINDING CAPACITY 183 ug/dL (261-478); TRANSFERRIN 131 mg/dL (180-382)
[2018-03-21 20:00] VITALS: BP 124/60
[2018-03-21] MEDS: ACETAMINOPHEN/CODEINE 300MG - 30MG TAB PO PRN (20:22)
--- NOTE | 2018-03-21 21:01 | History and Physical ---
HISTORY OF PRESENT ILLNESS: I was called by Dr. Michaels, ER physician, who stated he was hospitalizing the patient because of atrial fibrillation. See also ER orders. When I saw the patient today at 5:30 p.m., she was happily in sinus rhythm. She had no significant past history of atrial fibrillation that she was unaware of. TSH was normal here today. The patient has occasional headache. On an outpatient basis several weeks prior, the patient had a head scan which revealed multiple suspected metastases. The patient was referred to her oncologist and radiotherapist for specific therapy, and she declined to keep these appointments. The patient notes chronic discomfort "all over." No specific location. See nurse's notes in the ER regarding patient requesting intravenous opiates. She has chronically been on opiates for pain. She was given Tylenol No. 4, number 180 pills, February [address] Maxwell. On January 10, Dr. Hardwick (first initial I.), prescribed 60 pills of morphine 15 mg. On February 17 the patient was prescribed [employer] [address] Hardwick. The patient has chronic dyspnea on exertion. Denies current GI or symptoms. She is sedentary and weak. She states she has become hoarse over the last few weeks. She reported some falling on arrival to the emergency room. Mediastinal mass biopsy October 21, 2016, revealed squamous cell carcinoma. Chest x-ray now with pulmonary nodules. The patient has had prior treatment for the mediastinal cancer with chemotherapy and radiotherapy, she reports. Diagnoses have also included hiatal hernia, diverticulosis, degenerative joint disease with chronic back pain. Chronic heavy tobacco use still with smoking 1/2 pack of cigarettes daily. History has included thrombocytopenia, chronic mood disorder, low B12 levels, hepatitis C reactive. With negative quantitative hepatitis C viral studies. Osteoporosis. Negative stress scan and normal LV function August 11, 2016, by Dr. Chidi Hyatt, her supervisor carton and can supply. History of esophageal ulcers. Pneumovax October 31, 2014, here. PPD negative 2013. Surgery: Ventral herniorrhaphy 2013. EGD with severe esophagitis 2014. Colonoscopy 2014. THE PATIENT STATES SHE IS ALLERGIC TO BETADINE. FAMILY HISTORY: Breast cancer and cancer of the ovary, patient's mother. CURRENT LAB: Reviewed, with mild hypokalemia, potassium to be repleted. Potassium 3.2. CURRENT EXAMINATION: GENERAL: Sensorium is baseline. The patient's voice is hoarse. VITAL SIGNS: Blood pressure 123/76. Respiratory rate 20. Pulse 75. O2 saturation 98%. Temperature 98.7. Blood pressure 90/62 on arrival to ER per earlier vitals today at noon. HEENT: Pupils round, reactive. EOMs adequate. Minimal pallor. Throat clear. NECK: Supple. CARDIAC: Sounds S1, S2 are soft. Pulse regular. PULMONARY: Auscultation revealed generalized rhonchi. ABDOMEN: Soft. Bowel sounds normal. EXTREMITIES: With dampened pulses. Strength generalized reduced. DTRs depressed. Babinski's negative. No edema. No cyanosis. See also ER laboratory. Hemoglobin 9.4 with low indices. As mentioned, TSH 1.5. Glucose elevated at 151. ER ordered cardiac enzymes, which were normal. ER has ordered Lovenox and chest CT. CURRENT IMPRESSION: Emergency room reported paroxysm of atrial fibrillation which has resolved. 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 Degenerative joint disease with chronic back pain. Recent falls. Hoarseness secondary to lung cancer. History of multiple chronic problems as above and also including ALLERGY TO BETADINE, osteoporosis, hiatal hernia, diverticulosis, chronic obstructive pulmonary disease, heavy tobacco use, low B12 levels, esophagitis, mood disorder. Recent CT here revealed disk disease lower thoracic and lumbosacral spine and facet hypertrophy. Umbilical hernia, small. Hyperglycemia. Hypokalemia. Anemia with low indices as mentioned. CURRENT PLANS: Fall precautions. Control blood sugar. 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 Replete potassium. Follow up blood sugars. Follow up hematocrits. Control pain. The patient states she has not been keeping her outpatient appointments. She was offered assessment for fdc facility. Will request those treating her cancer to see her while here. See also initial and followup orders. She has recurrent falls and is a poor candidate for chronic anticoagulation. Job#: [id number]
[2018-03-21] MEDS ORDERED: DIPHENHYDRAMINE HCL INJ 50 MG/ML VIAL IV NR (21:30)
[2018-03-21] MEDS ORDERED: METHYLPREDNISOLONE SOD SUCC 125 MG/2ML VIAL IV NR (21:30)
[2018-03-21] MEDS: FAMOTIDINE 20 MG TAB PO SCH (21:49)
[2018-03-21] MEDS: ENOXAPARIN INJ 80 MG/0.8 ML SYR SC SCH (21:49)
[2018-03-21 22:25] LABS: CREATINE KINASE MB 0.7 ng/mL (0-5.0)
[2018-03-22] VITALS: BP 145/80
--- NOTE | 2018-03-22 00:43 | Diagnostic Imaging Report ---
EXAM: CT CHEST W INDICATION: Shortness of breath, history of lung cancer, frequent falls, no appetite pain to left side lower back COMPARISON: CT of the abdomen and pelvis without IV contrast February 14, 2015 TECHNIQUE: Multidetector CT scanning of the chest was performed. Coronal and sagittal multiplanar reformations were obtained. Dose modulation, iterative reconstruction, and/or weight based adjustment of the mA/kV was utilized to reduce the radiation dose to as low as reasonably achievable. PE protocol performed. IV Contrast: 90 cc Isovue 300 CTDIvol has been reviewed. It is below the limits set by the Radiation Protocol Committee (RPC). FINDINGS: LUNGS AND AIRWAYS: The trachea and major bronchi are unremarkable. Right apical nodule measuring 8 x 6 mm. Left upper lobe pleural-based 6 mm nodule. Emphysematous changes. There is an infiltrating left upper medial lobe mass infiltrating the mediastinum. Size is difficult to determine, but measures at least 7 x 4 cm. The mass extends into the anterior upper mediastinum and inferiorly below the liberty. It compresses upon the left aspect of the main pulmonary artery and left main pulmonary artery. It encases the anterior superior branch of the left main pulmonary artery with severe narrowing. The mass encases the distal left brachiocephalic vein resulting in occlusion and multiple collateral vessels. No evidence of an acute pulmonary embolism. PLEURA: No effusions or pneumothorax. HEART, MEDIASTINUM, VESSELS: The heart is within normal size limits. No evidence of a thoracic aortic aneurysm. Pulmonary arteries as above. No abnormal pericardial effusion. There is a right internal jugular vein chest port that terminates in the distal superior vena cava. UPPER ABDOMEN: Interval increased splenomegaly. Interval increase in size of a mixed density splenic mass, now measuring approximately 9 cm, previously approximately 7 cm. Interval increase in size of the mass, could be secondary to overall increase in size of the spleen. The liver is incompletely evaluated for metastatic disease due to timing of contrast. No adrenal gland nodules. Multiple left upper quadrant varices. MUSCULOSKELETAL: No acute findings. IMPRESSION: 1. No evidence of a pulmonary embolism. 2. Infiltrating mass in the left upper medial lung which extends into the mediastinum and causes near complete occlusion of the left anterior superior branch of the left main pulmonary artery. It causes complete occlusion of the left distal brachiocephalic vein. 3. Nonspecific right apical nodule measuring 8 mm and left upper lobe pulmonary nodule measuring 6 mm. 4. Interval increase in splenomegaly with associated mass, which could represent increase in size of the mass or be secondary to the general enlargement of the spleen. Partially visualized left upper quadrant varices. The splenic vein is not evaluated on this exam. Signed by: Dr. Lanie Mcbride M.D. on 03/22/2018 12:39 AM
[2018-03-22] MEDS: ACETAMINOPHEN/CODEINE 300MG - 30MG TAB PO PRN ×5 (02:45→21:20)
[2018-03-22 04:00] VITALS: BP 125/65
[2018-03-22 04:44] LABS: BASOPHILS % 0.2 % (0.0-1.0); HEMATOCRIT 28.8 % (34.2-44.1); HEMOGLOBIN 8.7 g/dL (12.0-16.0); LYMPHOCYTES # (AUTO) 0.2 (1.0-3.2); LYMPHOCYTES % 3.9 % (18.0-39.1); MEAN CORPUSCULAR HEMOGLOBIN 26.2 pg (28-32); MEAN CORPUSCULAR HGB CONC 30.2 g/dL (31-35); MEAN CORPUSCULAR VOLUME 86.7 fL (81-99); MONOCYTES # (AUTO) 0.1 (0.2-0.8); MONOCYTES % 1.2 % (4.4-11.3); NEUTROPHILS # (AUTO) 4.8 (2.1-6.9); NEUTROPHILS % 94.3 % (38.7-80.0); PLATELET COUNT 140 x10e3/uL (140-360); RED BLOOD COUNT 3.32 x10e6/uL (3.6-5.1)
[2018-03-22] MEDS ORDERED: IOPAMIDOL 370 MG/ML 200 ML INFUS..BTL INJ ONE (04:51)
[2018-03-22] MEDS ORDERED: SODIUM CHLORIDE 0.9% 50ML 50 ML ONE (04:51)
[2018-03-22 05:06] LABS: ANION GAP 14.3 mmol/L (8-16); BLOOD UREA NITROGEN 9 mg/dL (7-26); BUN/CREATININE RATIO 13 (6-25); CALCIUM 9.7 mg/dL (8.4-10.2); CARBON DIOXIDE 24 mmol/L (22-29); CHLORIDE 103 mmol/L (98-107); CREATINE KINASE 13 IU/L (29-168); CREATININE, SERUM 0.71 mg/dL (0.57-1.11); EST GLOMERULAR FILTRATION RATE > 60 ML/MIN (60-); GLUCOSE 155 mg/dL (74-118); POTASSIUM 4.3 mmol/L (3.5-5.1); SODIUM 137 mmol/L (136-145)
[2018-03-22] MEDS: FAMOTIDINE 20 MG TAB PO SCH ×2 (07:47→16:43)
[2018-03-22 08:00] VITALS: BP 137/72
[2018-03-22] MEDS ORDERED: METOPROLOL TARTRATE 25 MG TAB PO SCH (09:00)
[2018-03-22] MEDS: ENOXAPARIN INJ 80 MG/0.8 ML SYR SC SCH (09:04)
[2018-03-22] MEDS: METOPROLOL TARTRATE 25 MG TAB PO SCH (09:18)
--- NOTE | 2018-03-22 09:34 | Consultation ---
DATE OF CONSULTATION: March 21, 2018 CARDIOLOGY CONSULTATION REASON FOR CONSULTATION: AFib. CONSULTING PHYSICIAN: Dr. Michaels HISTORY OF PRESENT ILLNESS: This is a 67-year-old female with multiple chronic problems that presented with nausea and vomiting. According to the patient, she had lost her appetite and unable to eat, having multiple nausea and vomiting, and pain to the left side of her neck, shoulder and back that she presented to the emergency room for evaluation. She also complained of dizziness and weakness. She described the pain as a left substernal pressure on a scale of 2/10 with no radiation. She has a history of lung cancer, and has been going through chemo and radiation. She is also on multiple medications that made her prone to fall. She denies any palpitations, any shortness of breath, any diaphoresis, or headache. Her troponin was negative. EKG showed normal sinus rhythm with no S/T abnormalities. BNP 376. She also stated she had 7 falls from September through March. She would go to bed and wake up and see herself on the floor. PAST MEDICAL HISTORY: Lung cancer, hiatal hernia, diverticulosis, DJD, chronic back pain, multiple falls, daily smoker, thrombocytopenia, PTSD, hep C, esophageal ulcer, syphilis, COPD, GERD, osteoarthritis, fibromyalgia. PAST SURGICAL HISTORY: Right chest Port-A-Cath and hernia repair, biopsy times 2, radiation and chemo. FAMILY HISTORY: Positive for cancer. SOCIAL HISTORY: She lives at home with a friend. She smokes daily and stated she quit smoking last week. MEDICATIONS: She is on Tylenol No. 3, Xanax, gabapentin, hydrocodone, morphine, omeprazole, Compazine, ibuprofen, Ambien, Carafate, and Proair. ALLERGIES: SHE IS ALLERGIC TO IODINE AND SOUP. REVIEW OF SYSTEMS: Negative except those mentioned above. PHYSICAL EXAMINATION VITAL SIGNS: Temperature 97, heart rate 74, blood pressure 125/65, respirations 16, oxygen saturation 96% on room air. GENERAL: She is awake, alert and oriented times 3. HEENT: Mucous membranes moist. NECK: Supple. LUNGS: Bilateral with decreased breath sounds. CARDIOVASCULAR: S1 and S2 present. ABDOMEN: Soft. NEUROLOGICAL: Intact. EXTREMITIES: With no edema. LABS: Sodium 137, potassium 4.3, chloride 103, CO2 24, BUN 9, creatinine 0.71, glucose 155. White blood cells 5.07, hemoglobin 8.7, hematocrit 28.8, and platelets 140,000. IMPRESSION 1. Paroxysmal atrial fibrillation. 2. Anemia. 3. Multiple falls. 4. Lung cancer. 5. History of chronic pain. 6. Daily smoker. ASSESSMENT AND PLAN 1. Her heart rate is back to normal sinus rhythm. She had a high risk for bleeding due to multiple falls and anemia. Will go ahead and hold off on p.o. anticoagulation for now. Heart rate is in the 70s and 80s. Will start her on low-dose beta jay. 2. She had a negative carotid Doppler and negative cardiac stress test in 2017. 3. She stated she quit smoking. Will go ahead and check a TSH also. Further cardiac workup pending clinical course. Thank you for this consultation. DICTATED BY AMBER PERRY NP Job#: [id number] DISHA
[2018-03-22 12:00] VITALS: BP 137/68
[2018-03-22] MEDS: IRON SUCROSE 100 MG in SODIUM CHLORIDE 0.9% 100 ML 100 ML IV SCH (12:44)
[2018-03-22] MEDS: PROCHLORPERAZINE MALEATE TAB 10 MG TAB PO SCH ×3 (12:58→21:48)
[2018-03-22 16:00] VITALS: BP 128/64
[2018-03-22 20:00] VITALS: BP 100/59
[2018-03-23] VITALS (7 sets, daily range): BP systolic 84–101; BP diastolic 47–59
[2018-03-23] MEDS: ACETAMINOPHEN/CODEINE 300MG - 30MG TAB PO PRN ×5 (02:00→21:39)
[2018-03-23 05:05] LABS: HEMATOCRIT 27.6 % (34.2-44.1); HEMOGLOBIN 8.1 g/dL (12.0-16.0)
[2018-03-23 05:26] LABS: BLOOD UREA NITROGEN 10 mg/dL (7-26); BUN/CREATININE RATIO 13 (6-25); CALCIUM 9.7 mg/dL (8.4-10.2); CARBON DIOXIDE 26 mmol/L (22-29); CHLORIDE 105 mmol/L (98-107); CREATININE, SERUM 0.79 mg/dL (0.57-1.11); EST GLOMERULAR FILTRATION RATE > 60 ML/MIN (60-); GLUCOSE 117 mg/dL (74-118); SODIUM 140 mmol/L (136-145)
[2018-03-23] MEDS: FAMOTIDINE 20 MG TAB PO SCH ×2 (08:48→16:59)
[2018-03-23] MEDS: PROCHLORPERAZINE MALEATE TAB 10 MG TAB PO SCH ×4 (08:49→21:00)
[2018-03-23] MEDS: METOPROLOL TARTRATE 25 MG TAB PO SCH (08:49)
[2018-03-23] MEDS: IRON SUCROSE 100 MG in SODIUM CHLORIDE 0.9% 100 ML 100 ML IV SCH (12:10)
[2018-03-24] VITALS: BP 87/59
[2018-03-24] MEDS: ACETAMINOPHEN/CODEINE 300MG - 30MG TAB PO PRN ×4 (01:28→13:42)
[2018-03-24 04:00] VITALS: BP 88/67
[2018-03-24 04:39] LABS: BASOPHILS % 0.3 % (0.0-1.0); EOSINOPHILS % 0.5 % (0.0-6.0); HEMATOCRIT 29.1 % (34.2-44.1); HEMOGLOBIN 8.4 g/dL (12.0-16.0); LYMPHOCYTES # (AUTO) 0.7 (1.0-3.2); LYMPHOCYTES % 9.1 % (18.0-39.1); MEAN CORPUSCULAR HEMOGLOBIN 26.4 pg (28-32); MEAN CORPUSCULAR HGB CONC 28.9 g/dL (31-35); MEAN CORPUSCULAR VOLUME 91.5 fL (81-99); MONOCYTES # (AUTO) 0.7 (0.2-0.8); NEUTROPHILS % 80.7 % (38.7-80.0); PLATELET COUNT 145 x10e3/uL (140-360); RED BLOOD COUNT 3.18 x10e6/uL (3.6-5.1); RED CELL DISTRIBUTION WIDTH 17.5 % (11.7-14.4)
[2018-03-24 04:57] LABS: ANION GAP 14.6 mmol/L (8-16); BLOOD UREA NITROGEN 13 mg/dL (7-26); BUN/CREATININE RATIO 17 (6-25); CALCIUM 9.2 mg/dL (8.4-10.2); CARBON DIOXIDE 26 mmol/L (22-29); CHLORIDE 103 mmol/L (98-107); CREATININE, SERUM 0.76 mg/dL (0.57-1.11); EST GLOMERULAR FILTRATION RATE > 60 ML/MIN (60-); GLUCOSE 89 mg/dL (74-118); POTASSIUM 4.6 mmol/L (3.5-5.1); SODIUM 139 mmol/L (136-145)
[2018-03-24 08:00] VITALS: BP 93/54
[2018-03-24] MEDS: PROCHLORPERAZINE MALEATE TAB 10 MG TAB PO SCH ×2 (08:48→13:00)
[2018-03-24] MEDS: FAMOTIDINE 20 MG TAB PO SCH (08:48)
[2018-03-24] MEDS ORDERED: FAMOTIDINE20 MG PO (10:59)
[2018-03-24] MEDS: IRON SUCROSE 100 MG in SODIUM CHLORIDE 0.9% 100 ML 100 ML IV SCH (11:15)
[2018-03-24 12:00] VITALS: BP 92/55
== END 2018-03-24 14:10 | disposition home or self-care (01) | DRG 309 ==
LOC: ER 11:37 → ERHOLD 17:48 → MED/SURG2 18:26
PROVIDERS: ADMIT Internal Medicine; ATTEND Internal Medicine
DX: I48.0 Paroxysmal atrial fibrillation (principal); C34.90 Malignant neoplasm of unspecified part of unspecified bronchus or lung; D50.9 Iron deficiency anemia, unspecified; Z72.0 Tobacco use; E87.6 Hypokalemia; E86.0 Dehydration; E11.65 Type 2 diabetes mellitus with hyperglycemia; M51.36 Other intervertebral disc degeneration, lumbar region
CPT/HCPCS: 36415; 71045; 71260; 80048; 80053; 81001; 82550; 82553; 83036; 83540; 83880; 84443; 84466; 84484; 85014; 85018; 85025; 85379; 87086; 93005; 93880; 97139; 99284; J1200; J1642; J1650; J1756; J2930; J7030; Q9967

== ENCOUNTER 2018-05-13 19:50 | Emergency (ER) | payer MEDICARE, OTHER ==
[~2018-05-13] VITALS: Ht 160 cm; Wt 60.3 kg
[~2018-05-13 19:50] MED LIST changes: +AMBIEN5 MG PO; +GABAPENTIN300 MG PO; +IBUPROFEN400 MG PO; +MS CONTIN15 MG PO; +NORCO 5-325 TA1 EACH PO; +PROCHLORPERAZIN10 MG; +SUCRALFATE1 GM PO
[2018-05-13] MEDS ORDERED: LORAZEPAM INJ 2 MG/ML VIAL IV ONE (21:45)
[2018-05-13 23:11] LABS: BILIRUBIN,URINE NEGATIVE (NEGATIVE); CLARITY,URINE HAZY (CLEAR); COLOR,URINE YELLOW (YELLOW); KETONES,URINE 1+ (NEGATIVE); LEUKOCYTE ESTERASE ,URINE NEGATIVE (NEGATIVE); NITRITE,URINE NEGATIVE (NEGATIVE); PROTEIN,URINE DIPSTICK NEGATIVE (NEGATIVE); URINE UROBILINOGEN 0.2 mg/dL (0.2 - 1)
[2018-05-13 23:22] LABS: AMORPHOUS SEDIMENT,URINE MODERATE (FEW); BACTERIA,URINE FEW /HPF; EPITHELIAL CELLS,URINE FEW /LPF; RBC,URINE 0-5 /HPF (0-5); WBC,URINE (MAN) 0-5 /HPF (0-5)
[2018-05-13 23:33] LABS: BASOPHILS % 0.1 % (0.0-1.0); EOSINOPHILS % 0.1 % (0.0-6.0); HEMATOCRIT 32.9 % (34.2-44.1); HEMOGLOBIN 9.8 g/dL (12.0-16.0); LYMPHOCYTES # (AUTO) 0.3 (1.0-3.2); LYMPHOCYTES % 3.1 % (18.0-39.1); MEAN CORPUSCULAR HGB CONC 29.8 g/dL (31-35); MEAN CORPUSCULAR VOLUME 87.3 fL (81-99); MONOCYTES # (AUTO) 0.5 (0.2-0.8); MONOCYTES % 4.1 % (4.4-11.3); NEUTROPHILS # (AUTO) 10.1 (2.1-6.9); NEUTROPHILS % 92.1 % (38.7-80.0); PLATELET COUNT 247 x10e3/uL (140-360); RED BLOOD COUNT 3.77 x10e6/uL (3.6-5.1); RED CELL DISTRIBUTION WIDTH 17.8 % (11.7-14.4)
[2018-05-13 23:52] LABS: ALANINE AMINOTRANSFERASE 22 IU/L (0-55); ALBUMIN 2.7 g/dL (3.5-5.0); ALBUMIN/GLOBULIN RATIO 0.5 (0.8-2.0); ALKALINE PHOSPHATASE 160 IU/L (40-150); ANION GAP 21.3 mmol/L (8-16); BLOOD UREA NITROGEN 13 mg/dL (7-26); BUN/CREATININE RATIO 16 (6-25); CALCIUM 10.8 mg/dL (8.4-10.2); CARBON DIOXIDE 21 mmol/L (22-29); CHLORIDE 100 mmol/L (98-107); CREATINE KINASE 18 IU/L (29-168); CREATININE, SERUM 0.81 mg/dL (0.57-1.11); EST GLOMERULAR FILTRATION RATE > 60 ML/MIN (60-); GLUCOSE 199 mg/dL (74-118); POTASSIUM 4.3 mmol/L (3.5-5.1); SODIUM 138 mmol/L (136-145)
[2018-05-14 00:56] LABS: PLATELET ESTIMATE ADEQUATE; PLATELET MORPHOLOGY COMMENT NORMAL; RBC MORPHOLOGY COMMENT NORMAL
[2018-05-14 00:57] VITALS: BP 150/89
[2018-05-14] MEDS ORDERED: ONDANSETRON HCL 4 MG ORAL DISINTEGRATING TAB ONE (01:23)
[2018-05-14] MEDS ORDERED: ONDANSETRON HCL 4 MG ORAL DISINTEGRATING TAB PO ONE (01:30)
== END 2018-05-14 01:28 | disposition home or self-care (01) ==
LOC: ER 19:50
DX: R11.2 Nausea with vomiting, unspecified (principal); F41.1 Generalized anxiety disorder; F13.239 Sedative, hypnotic or anxiolytic dependence with withdrawal, unspecified; C79.31 Secondary malignant neoplasm of brain; B19.20 Unspecified viral hepatitis C without hepatic coma; M79.7 Fibromyalgia; K21.9 Gastro-esophageal reflux disease without esophagitis; F43.10 Post-traumatic stress disorder, unspecified; Z85.118 Personal history of other malignant neoplasm of bronchus and lung; Z87.891 Personal history of nicotine dependence
CPT/HCPCS: 36415; 80053; 81001; 82550; 82553; 84484; 85025; 93005; 96374; 99284; J2060; Q0162; 49083

== ENCOUNTER 2018-06-22 14:59 | Inpatient (IN) | payer MEDICARE, OTHER ==
[~2018-06-22] VITALS: Ht 160 cm; Wt 52.6 kg
--- NOTE | 2018-06-22 18:23 | History and Physical ---
HISTORY OF PRESENT ILLNESS: I was called by the patient's roommate earlier today, stating the patient was on her way to the emergency room because of weakness. The patient at this time states she is here because of discomfort in the left upper extremity and throat pain. See also multiple prior admissions here. History has included primarily metastatic squamous cell carcinoma of the lung. The patient has been seeing her radiotherapist, Dr. Maxwell, and her oncologist although she states she has not kept recent appointments. See also prior visits, notes from her consultants. Her oncologist is Dr. Asa Hardwick. Radiotherapist is Dr. Maxwell. Patient has also been seen by her numerical control machine machinist, Dr. Soares, here intermittently. The patient denies headache or visual changes. She has had FIREBRICK LAYER metastases. She denies fever or chills. Chronic shortness of breath. History of emphysema and heavy tobacco use in the past. She denies recent palpitations. Denies nausea, vomiting or diarrhea. Denies current symptoms. The patient states she is poorly ambulatory and progressively weak. She has a history of hiatal hernia and severe esophagitis as well as diverticulosis. History of degenerative joint disease with back disease and chronic back pain. History has included mood disorder. Osteoporosis. August 11, 2016, the patient underwent negative stress scan. Pneumovax was given October 31, 2014, here. PPD was negative 2013. Surgeries have included ventral herniorrhaphy 2013. EGD 2014 (esophagitis severe). Colonoscopy 2014. Prior bone marrow workup as mentioned above. Mediastinal mass biopsy October 21, 2016. The patient states she had a splenic benign biopsy in the past. THE PATIENT STATES SHE IS ALLERGIC TO BETADINE. Family history is positive for breast cancer and cancer of the ovary, patient's mother. Initial laboratory pending. CURRENT IMPRESSION: Widely metastatic squamous cell carcinoma of the lung. Left upper extremity discomfort likely related to the metastatic cancer. History of multiple chronic illnesses as mentioned above including emphysema, esophageal ulcers and esophagitis. Hyperglycemia. Anemia of chronic disease. 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 Osteoporosis. Diverticulosis. Mood disorder. Paroxysmal atrial fibrillation. CURRENT VITAL SIGNS: Temperature 97, pulse 80 and regular, respiratory rate 16, BP 90/60, pulse oximetry 100%. Current lab pending. Current imaging pending. See prior studies. Chest CT previously done here March 21, 2018. Infiltrating mass left upper medial lung extending to the mediastinum. Near complete occlusion left anterior superior branch of the left main pulmonary artery. Complete occlusion of the left distal brachiocephalic vein. Right apical nodule 8 mm. Left upper lobe nodule 6 mm. Splenomegaly. Mass in spleen as before. The current plans are to control the patient's pain. Need initial database. Assure hydration. Avoid falls. Patient has been quite weak. Will also request followup with her oncologist. CURRENT EXAM: Vital signs as above. The patient is in a chair, and speech is slurred. Generalized weakness. Moves 4 extremities. Pupils round, reactive, 3 mm. Throat posteriorly poorly seen. No icterus or pallor. Neck flexes. Carotids weak. Pulmonary auscultation, reduced breath sounds on the left side. Cardiac sounds S1-2 soft. Port-A-Cath right. Abdomen soft. Bowel sounds normal. Extremities free of edema. Strength diffusely poor. DTRs depressed. Babinski's negative. Pulses markedly dampened. Impression as above with plan as above. See also prior visits here. Job#: [id number] EV
[2018-06-22 19:06] LABS: BASOPHILS % 0.2 % (0.0-1.0); EOSINOPHILS # (AUTO) 0.1 (0.0-0.4); EOSINOPHILS % 0.7 % (0.0-6.0); HEMATOCRIT 31.2 % (34.2-44.1); HEMOGLOBIN 9.1 g/dL (12.0-16.0); LYMPHOCYTES % 7.4 % (18.0-39.1); MEAN CORPUSCULAR HEMOGLOBIN 25.7 pg (28-32); MEAN CORPUSCULAR HGB CONC 29.2 g/dL (31-35); MEAN CORPUSCULAR VOLUME 88.1 fL (81-99); MONOCYTES % 7.2 % (4.4-11.3); NEUTROPHILS # (AUTO) 11.1 (2.1-6.9); PLATELET COUNT 271 x10e3/uL (140-360); RED BLOOD COUNT 3.54 x10e6/uL (3.6-5.1); RED CELL DISTRIBUTION WIDTH 18.6 % (11.7-14.4)
[2018-06-22 19:18] LABS: INR 1.2; PROTHROMBIN TIME 16.3 seconds (11.9-14.5)
[2018-06-22 19:27] LABS: ALANINE AMINOTRANSFERASE 36 IU/L (0-55); ALBUMIN 2.5 g/dL (3.5-5.0); ALBUMIN/GLOBULIN RATIO 0.5 (0.8-2.0); ALKALINE PHOSPHATASE 209 IU/L (40-150); ANION GAP 18.4 mmol/L (8-16); BLOOD UREA NITROGEN 8 mg/dL (7-26); BUN/CREATININE RATIO 9 (6-25); CALCIUM 11.6 mg/dL (8.4-10.2); CARBON DIOXIDE 22 mmol/L (22-29); CHLORIDE 96 mmol/L (98-107); CREATININE, SERUM 0.85 mg/dL (0.57-1.11); EST GLOMERULAR FILTRATION RATE > 60 ML/MIN (60-); GLUCOSE 120 mg/dL (74-118); POTASSIUM 4.4 mmol/L (3.5-5.1); SODIUM 132 mmol/L (136-145)
--- NOTE | 2018-06-22 20:10 | Diagnostic Imaging Report ---
EXAMINATION: CHEST SINGLE (PORTABLE) COMPARISON: CTA chest and chest x-ray 03/21/2018 INDICATION: Left shoulder pain, back pain, sore throat DISCUSSION: Frontal view of the chest obtained at 1930 hours. HEART AND MEDIASTINUM: The heart is normal in size. Fullness of the upper mediastinum to the left of midline is stable consistent with lymphadenopathy. Calcified left mediastinal lymph node is stable. LINES: MediPort catheter terminates in the SVC LUNGS: Diffuse hyperinflation is stable. Multiple tiny calcifications throughout the right lung are stable. A calcified nodule in the left upper lobe measures 1.6 x 1.9 cm. This was not associated with any intraparenchymal finding on CT. This overlies the fourth rib. New nodule in the left midlung field measures 1.0 x 1.2 cm. Multiple calcified nodules throughout the parenchyma measuring less than 10 mm are stable. No pneumonia or pulmonary edema. No confluent infiltrates. There is mild volume loss of the left hemithorax. PLEURA: No pleural effusion or pneumothorax. BONES AND SOFT TISSUES: No destructive osseous lesions or evidence of acute fracture. The soft tissues are normal. IMPRESSION: 1. No significant change in mediastinal lymphadenopathy. New calcified nodule in the left upper lobe. No noncalcified nodule in the left midlung field. Findings are concerning for progression of neoplasm. 2. Subcentimeter calcified granulomata are stable. Stable volume loss of the left hemithorax. Signed by: Dr. Miki Shaw MD on 06/22/2018 8:07 PM
[2018-06-22] MEDS ORDERED: HYDROMORPHONE 1MG/1ML INJ IV STA (20:49)
[2018-06-22 20:58] LABS: BILIRUBIN,URINE NEGATIVE (NEGATIVE); CLARITY,URINE CLEAR (CLEAR); COLOR,URINE YELLOW (YELLOW); KETONES,URINE NEGATIVE (NEGATIVE); LEUKOCYTE ESTERASE ,URINE NEGATIVE (NEGATIVE); NITRITE,URINE NEGATIVE (NEGATIVE); PROTEIN,URINE DIPSTICK TRACE (NEGATIVE); URINE UROBILINOGEN 1 mg/dL (0.2 - 1)
[2018-06-22] MEDS ORDERED: HYDROMORPHONE 2MG/ML 2 MG/ML ML ONE (20:58)
[2018-06-22] MEDS ORDERED: ONDANSETRON HCL INJ 2 MG/ML VIAL ONE (20:58)
[2018-06-22] MEDS ORDERED: ONDANSETRON HCL INJ 2 MG/ML VIAL IV ONE (21:00)
[2018-06-22] MEDS ORDERED: HYDROMORPHONE 2MG/ML 2 MG/ML ML IV ONE (21:00)
[2018-06-22] MEDS ORDERED: SODIUM CHLORIDE 0.9% 1000ML 1,000 ML IV ONE (21:00)
[2018-06-22 21:06] LABS: AMORPHOUS SEDIMENT,URINE MODERATE (FEW); BACTERIA,URINE MANY /HPF; EPITHELIAL CELLS,URINE MODERATE /LPF
[2018-06-22 21:07] LABS: MUCUS,URINE FEW (RARE)
[2018-06-22] MEDS ORDERED: HYDROMORPHONE 1MG/1ML INJ IV PRN (21:30)
[2018-06-22] MEDS ORDERED: ACETAMINOPHEN-1 EAC4 PO (21:49)
[2018-06-22] MEDS ORDERED: MECLIZINE HCL25 MG PO (21:51)
[2018-06-22] MEDS ORDERED: ALPRAZOLAM0.5 MG PO (21:51)
[2018-06-22] MEDS ORDERED: FLUOXETINE HCL20 MG PO (21:52)
[2018-06-22] MEDS ORDERED: DEXAMETHASONE4 MG PO (21:52)
[2018-06-22] MEDS ORDERED: QUETIAPINE FUMA25 MG PO (21:52)
[2018-06-22] MEDS ORDERED: ZOLPIDEM TARTRAT5 MG PO (21:52)
[2018-06-22] MEDS ORDERED: HYDROCODON-ACE1 EA11 PO (21:52)
[2018-06-22] MEDS: SODIUM CHLORIDE 0.9% 1000ML 1,000 ML IV SCH (22:26)
[2018-06-22 23:17] VITALS: BP 103/69
[2018-06-23] VITALS (8 sets, daily range): BP systolic 96–164; BP diastolic 57–79
[2018-06-23] MEDS: ALPRAZOLAM 0.5 MG TAB PO SCH ×4 (01:10→17:59)
[2018-06-23] MEDS: MECLIZINE HCL 12.5 MG TAB PO SCH ×4 (01:10→17:59)
[2018-06-23] MEDS: HYDROMORPHONE 2MG/ML 2 MG/ML ML IV PRN (01:10)
[2018-06-23] MEDS: ONDANSETRON HCL INJ 2 MG/ML VIAL IV PRN ×2 (01:11→22:30)
[2018-06-23 05:07] LABS: BASOPHILS % 0.2 % (0.0-1.0); EOSINOPHILS # (AUTO) 0.1 (0.0-0.4); EOSINOPHILS % 1.1 % (0.0-6.0); HEMATOCRIT 27.5 % (34.2-44.1); HEMOGLOBIN 7.7 g/dL (12.0-16.0); LYMPHOCYTES # (AUTO) 0.7 (1.0-3.2); LYMPHOCYTES % 7.9 % (18.0-39.1); MEAN CORPUSCULAR HEMOGLOBIN 25.7 pg (28-32); MONOCYTES # (AUTO) 0.8 (0.2-0.8); MONOCYTES % 9.5 % (4.4-11.3); NEUTROPHILS # (AUTO) 6.7 (2.1-6.9); NEUTROPHILS % 80.8 % (38.7-80.0); PLATELET COUNT 182 x10e3/uL (140-360); RED CELL DISTRIBUTION WIDTH 18.3 % (11.7-14.4)
[2018-06-23 05:11] LABS: MEAN CORPUSCULAR VOLUME 91.7 fL (81-99)
[2018-06-23] MEDS: SODIUM CHLORIDE 0.9% 1000ML 1,000 ML IV SCH ×2 (05:22→16:08)
[2018-06-23 05:39] LABS: ALANINE AMINOTRANSFERASE 31 IU/L (0-55); ALBUMIN 2.2 g/dL (3.5-5.0); ALBUMIN/GLOBULIN RATIO 0.5 (0.8-2.0); ALKALINE PHOSPHATASE 183 IU/L (40-150); ANION GAP 16.9 mmol/L (8-16); BLOOD UREA NITROGEN 8 mg/dL (7-26); BUN/CREATININE RATIO 10 (6-25); CALCIUM 10.1 mg/dL (8.4-10.2); CARBON DIOXIDE 17 mmol/L (22-29); CHLORIDE 100 mmol/L (98-107); CREATININE, SERUM 0.77 mg/dL (0.57-1.11); EST GLOMERULAR FILTRATION RATE > 60 ML/MIN (60-); GLUCOSE 109 mg/dL (74-118); POTASSIUM 3.9 mmol/L (3.5-5.1); SODIUM 130 mmol/L (136-145)
--- NOTE | 2018-06-23 07:00 | NUR ---
SHIFT REPORT RECEIVED FROM NIGHT RN. PT DENIES NEEDS AT THIS TIME.
[2018-06-23 09:03] LABS: HYPOCHROMASIA MODERATE; PLATELET ESTIMATE ADEQUATE; PLATELET MORPHOLOGY COMMENT FEW LARGE; RBC MORPHOLOGY COMMENT NORMAL
[2018-06-23 09:04] LABS: ANISOCYTOSIS SLIGHT
[2018-06-23] MEDS: FLUOXETINE HCL 20 MG CAP PO SCH (09:36)
[2018-06-23] MEDS: DEXAMETHASONE 4 MG TAB PO SCH ×2 (09:36→17:59)
[2018-06-23] MEDS: QUETIAPINE FUMARATE 25 MG TAB PO SCH ×3 (09:36→21:00)
--- NOTE | 2018-06-23 12:20 | NUR ---
Referral from APRYL. Pt unavailable at this time. Will follow up. JOSE LUIS SINGER Social Science Teacher Spiritual Care Department O: [phone] Pager: [phone] ([phone] number calling from)
[2018-06-23] MEDS ORDERED: SODIUM CHLORIDE 0.9% 250ML 250 ML IV ONE (13:10)
--- NOTE | 2018-06-23 16:32 | NUR ---
CM WENT IN TO MEET WITH PT PT VERY LETHARGIC AND UNABLE TO ANSWER QUESTIONS PER CHART PT IS A DNR FOR METASTATIC CANCER OF LUNG (STAGE 4) CALL PLACED TO PT'S DTR SHAHRAM PEREA [phone] AND LEFT VOICE MAIL TO CALL CM BACK CM TO FOLLOW
--- NOTE | 2018-06-23 17:15 | NUR ---
CASE MANAGEMENT INITIAL ASSESSMENT Dressage Instructor to bedside to discuss plan of care with patient/family. CM/SW role and care transitions discussed. Anticipated discharge plan discussed along with duration of care. CM/SW discussed patients right to make decisions in care. CM/SW work hours given. Patient lives: WITH FEMALE ROOM MATE Admit/Transfer: FROM ER POA/Emergency contact: DTR SHADE BRITALDEN [phone] Current/Previous Home Health: NONE PCP/Follow-up Care: PT'S DTR STATES PT HAS BEEN UNABLE TO MAKE DOCTORS APPTS DUE TO TRANSPORTATION ISSUES Current/Previous DME: HAS HOME 02 Other Services: NONE Employment Status: UNEMPLOYED Areas of Concerns: UNDETERMINED Referral Needs: PT IS DNR STATUS FOR STAGE 4 LUNG CANCER; PT'S DTR STATES SHE ALSO HAS BRAIN CANCER; REQUESTING HOSPICE CONSULT FOR EDUCATIONAL REFERRAL Education Needs: PT AND DTR NEED EDUCATION FROM PHYSICIAN ABOUT PT'S PROGNOSIS IMM/BROWN given and signed (if applicable): IN ER Goal for discharge:DISCHARGE GOAL UNCERTAIN AT THIS TIME; PT'S DTR TO MEET WITH PHYSICIANS AND HOSPICE; IF PT GOES HOSPICE WILL NEED PLACEMENT ROOM MATE IS ELDERLY AND UNABLE TO CARE FOR PT CM/SW left business card at the bedside with contact information. Name and number was also written on the patients whiteboard. Patient verbalized understanding of discussion. CM will follow-up with ongoing discharge and transition of care needs.
[2018-06-23] MEDS ORDERED: SODIUM CHLORIDE 0.9% 250ML 250 ML ONE (18:01)
[2018-06-23] MEDS: ZOLPIDEM TARTRATE 5 MG TAB PO SCH (21:00)
[2018-06-24] VITALS (7 sets, daily range): BP systolic 124–154; BP diastolic 67–93
[2018-06-24] MEDS: HYDROMORPHONE 2MG/ML 2 MG/ML ML IV PRN (00:48)
[2018-06-24 04:49] LABS: BASOPHILS % 0.1 % (0.0-1.0); HEMOGLOBIN 9.1 g/dL (12.0-16.0); LYMPHOCYTES # (AUTO) 0.4 (1.0-3.2); LYMPHOCYTES % 4.9 % (18.0-39.1); MEAN CORPUSCULAR HEMOGLOBIN 27.7 pg (28-32); MEAN CORPUSCULAR HGB CONC 31.4 g/dL (31-35); MONOCYTES # (AUTO) 0.4 (0.2-0.8); MONOCYTES % 4.8 % (4.4-11.3); NEUTROPHILS # (AUTO) 6.6 (2.1-6.9); NEUTROPHILS % 89.7 % (38.7-80.0); PLATELET COUNT 168 x10e3/uL (140-360); RED BLOOD COUNT 3.29 x10e6/uL (3.6-5.1); RED CELL DISTRIBUTION WIDTH 17.6 % (11.7-14.4)
[2018-06-24] MEDS: ALPRAZOLAM 0.5 MG TAB PO SCH ×5 (05:01→17:40)
[2018-06-24] MEDS: MECLIZINE HCL 12.5 MG TAB PO SCH ×4 (05:01→17:40)
[2018-06-24 05:08] LABS: MEAN CORPUSCULAR VOLUME 88.1 fL (81-99)
[2018-06-24 05:10] LABS: ANION GAP 12.8 mmol/L (8-16); BLOOD UREA NITROGEN 11 mg/dL (7-26); BUN/CREATININE RATIO 16 (6-25); CALCIUM 10.4 mg/dL (8.4-10.2); CARBON DIOXIDE 22 mmol/L (22-29); CHLORIDE 105 mmol/L (98-107); EST GLOMERULAR FILTRATION RATE > 60 ML/MIN (60-); GLUCOSE 140 mg/dL (74-118); POTASSIUM 3.8 mmol/L (3.5-5.1); SODIUM 136 mmol/L (136-145)
[2018-06-24] MEDS: QUETIAPINE FUMARATE 25 MG TAB PO SCH ×3 (09:00→21:00)
--- NOTE | 2018-06-24 09:10 | NUR ---
Pt states she is trying to sleep. Will be available if requested. JOSE LUIS SINGER [employer] Assistant Spiritual Care Department O: [phone] Pager: [phone] ([phone] number calling from)
[2018-06-24] MEDS: FLUOXETINE HCL 20 MG CAP PO SCH (09:41)
[2018-06-24] MEDS: DEXAMETHASONE 4 MG TAB PO SCH ×2 (09:41→17:40)
[2018-06-24] MEDS: ONDANSETRON HCL INJ 2 MG/ML VIAL IV PRN ×2 (11:17→22:00)
--- NOTE | 2018-06-24 11:17 | NUR ---
Patient c/o nausea and there is emesis in the trash can. PRN Zofran given, will continue to monitor.
[2018-06-24] MEDS: SODIUM CHLORIDE 0.9% 1000ML 1,000 ML IV SCH (11:26)
--- NOTE | 2018-06-24 16:55 | NUR ---
Dr. Barajas is here making rounds, notified him patient is continuing to have nausea and vomiting all day. New orders received.
[2018-06-24] MEDS ORDERED: PANTOPRAZOLE 40 MG 10ML VIAL IV NR (17:00)
[2018-06-24] MEDS ORDERED: PROMETHAZINE HCL 25 MG SUPP PR PRN (17:00)
--- NOTE | 2018-06-24 17:24 | NUR ---
film vault supervisor not available to access port o cath.
--- NOTE | 2018-06-24 18:01 | NUR ---
Right sided port-o-cath accessed with Lopez 20g 3/4" needle. Good draw and flush; pt tolerated well. RN notified.
[2018-06-24 18:11] LABS: HEMATOCRIT 36.5 % (34.2-44.1); HEMOGLOBIN 11.2 g/dL (12.0-16.0)
--- NOTE | 2018-06-24 18:36 | NUR ---
HH results called to Dr Barajas. No new orders received.
[2018-06-24] MEDS: ZOLPIDEM TARTRATE 5 MG TAB PO SCH (22:00)
[2018-06-24] MEDS: HYDROCODONE/APAP 5MG-325MG TAB PO SCH (23:02)
[2018-06-25] VITALS (8 sets, daily range): BP systolic 112–156; BP diastolic 61–92
[2018-06-25] MEDS: ALPRAZOLAM 0.5 MG TAB PO SCH ×5 (00:36→22:00)
[2018-06-25] MEDS: MECLIZINE HCL 12.5 MG TAB PO SCH ×4 (00:36→18:00)
[2018-06-25] MEDS: HYDROCODONE/APAP 5MG-325MG TAB PO SCH ×3 (06:00→18:30)
[2018-06-25] MEDS: SODIUM CHLORIDE 0.9% 1000ML 1,000 ML IV SCH (07:26)
[2018-06-25 08:26] LABS: EOSINOPHILS % 0.1 % (0.0-6.0); HEMATOCRIT 35.1 % (34.2-44.1); HEMOGLOBIN 10.5 g/dL (12.0-16.0); LYMPHOCYTES # (AUTO) 0.4 (1.0-3.2); LYMPHOCYTES % 2.9 % (18.0-39.1); MEAN CORPUSCULAR HEMOGLOBIN 27.1 pg (28-32); MEAN CORPUSCULAR HGB CONC 29.9 g/dL (31-35); MEAN CORPUSCULAR VOLUME 90.5 fL (81-99); MONOCYTES # (AUTO) 0.7 (0.2-0.8); MONOCYTES % 5.8 % (4.4-11.3); NEUTROPHILS # (AUTO) 11.3 (2.1-6.9); NEUTROPHILS % 90.6 % (38.7-80.0); PLATELET COUNT 169 x10e3/uL (140-360); RED BLOOD COUNT 3.88 x10e6/uL (3.6-5.1); RED CELL DISTRIBUTION WIDTH 18.6 % (11.7-14.4)
[2018-06-25] MEDS: QUETIAPINE FUMARATE 25 MG TAB PO SCH ×3 (08:49→21:00)
[2018-06-25] MEDS: FLUOXETINE HCL 20 MG CAP PO SCH (08:49)
[2018-06-25] MEDS: DEXAMETHASONE 4 MG TAB PO SCH ×2 (08:49→18:00)
[2018-06-25] MEDS: PANTOPRAZOLE 40 MG 10ML VIAL IV SCH (08:49)
[2018-06-25 08:55] LABS: LYMPHOCYTES % (MANUAL) 7 % (19-48); MONOCYTES % (MANUAL) 6 % (3.4-9.0); NEUTROPHILS % (MANUAL) 87 % (40-74); PLATELET ESTIMATE ADEQUATE; PLATELET MORPHOLOGY COMMENT NORMAL; RBC MORPHOLOGY COMMENT NORMAL
[2018-06-25 09:57] LABS: ANION GAP 15.1 mmol/L (8-16); BLOOD UREA NITROGEN 10 mg/dL (7-26); BUN/CREATININE RATIO 14 (6-25); CALCIUM 11.4 mg/dL (8.4-10.2); CARBON DIOXIDE 26 mmol/L (22-29); CHLORIDE 103 mmol/L (98-107); CREATININE, SERUM 0.73 mg/dL (0.57-1.11); EST GLOMERULAR FILTRATION RATE > 60 ML/MIN (60-); GLUCOSE 132 mg/dL (74-118); POTASSIUM 4.1 mmol/L (3.5-5.1); SODIUM 140 mmol/L (136-145)
[2018-06-25] MEDS ORDERED: ALPRAZOLAM 0.5 MG TAB PO SCH (14:00)
--- NOTE | 2018-06-25 14:40 | NUR ---
SPOKE WITH DAUGHTER SHAHRAM PEREA [phone] WHOM STATES SHE WOULD LIKE MARIA GUADALUPE FROM [employer] TO ANSWER QUESTIONS SO FILED CHOICE IN CHART. SHE WILL MEET WITH HER AND USES [facility] AND SIGN PAPERWORK THIS WEEKEND. PT HAS MEDICARE AND COMMUNITY MEDICAID SO WILL NEED A PENDING BED TO GET SWITCHED OVER TO [facility] MEDICAID. DAUGHTER STATES SHE WOULD LIKE TO PLACE HER MOTHER CLOSER TO HER IN [place], LET HER KNOW THAT WILL TRY BUT SHE MAY NEED TO GET A BED AND THEN TRANSFER AFTER APPROVAL IS COMPLETED. SHE STATES SHE UNDERSTANDS AND WILL MEET WITH HOSPICE. WILL UPDATE CM TEAM WHEN COMPLETED.
--- NOTE | 2018-06-25 14:43 | NUR ---
SPOKE WITH [facility] AND THEY HAVE CONTACTED THE DAUGHTER AND WILL BE MEETING WITH DAUGHTER.
--- NOTE | 2018-06-25 19:20 | NUR ---
Patient received sitting up in bed. AAO x 3. Patient denies pain at this time. No signs of respiratory distress. Fall precautions maintained. Bed alarm activated. Patient instructed to call for assistance when needed. Call light within reach.
[2018-06-25] MEDS: ZOLPIDEM TARTRATE 5 MG TAB PO SCH (21:20)
[2018-06-26] VITALS (7 sets, daily range): BP systolic 101–147; BP diastolic 65–87
[2018-06-26] MEDS: MECLIZINE HCL 12.5 MG TAB PO SCH ×4 (00:30→17:54)
--- NOTE | 2018-06-26 02:50 | NUR ---
Lopez needle (20G, 3/4 L) used to access Port-A-Cath came off patient with needle intact. New 20G Lopez (3/4) needle used to access Port-A-Cath. Patient tolerated well.
[2018-06-26] MEDS: SODIUM CHLORIDE 0.9% 1000ML 1,000 ML IV SCH ×2 (03:26→23:26)
[2018-06-26] MEDS: ALPRAZOLAM 0.5 MG TAB PO SCH ×3 (05:49→22:20)
[2018-06-26] MEDS: HYDROCODONE/APAP 5MG-325MG TAB PO SCH ×3 (06:40→17:54)
--- NOTE | 2018-06-26 07:15 | NUR ---
Shift report given to oncoming nurse. Patient in stable condition.
[2018-06-26] MEDS: PANTOPRAZOLE 40 MG 10ML VIAL IV SCH (08:30)
[2018-06-26] MEDS: QUETIAPINE FUMARATE 25 MG TAB PO SCH ×3 (08:31→16:25)
[2018-06-26] MEDS: FLUOXETINE HCL 20 MG CAP PO SCH (08:31)
[2018-06-26] MEDS: DEXAMETHASONE 4 MG TAB PO SCH ×2 (08:31→17:54)
--- NOTE | 2018-06-26 19:20 | NUR ---
Patient received asleep in bed. Aroused by tactile stimuli. No acute distress noted. Fall precautions maintained. Call light within reach.
[2018-06-26] MEDS: ZOLPIDEM TARTRATE 5 MG TAB PO SCH (22:15)
[2018-06-26] MEDS: HYDROMORPHONE 2MG/ML 2 MG/ML ML IV PRN (23:34)
--- NOTE | 2018-06-26 23:35 | NUR ---
Patient agitated , restless and attempting to get out of bed numerous times. PRN medication administered per SEP.
[2018-06-27] VITALS (9 sets, daily range): BP systolic 115–142; BP diastolic 71–83
[2018-06-27] MEDS: MECLIZINE HCL 12.5 MG TAB PO SCH ×4 (01:00→18:36)
[2018-06-27] MEDS: ALPRAZOLAM 0.5 MG TAB PO SCH ×3 (06:40→22:00)
[2018-06-27] MEDS: HYDROCODONE/APAP 5MG-325MG TAB PO SCH ×3 (06:40→21:58)
--- NOTE | 2018-06-27 07:15 | NUR ---
PATIENT IN BED RESTING WITH EYES CLOSED, NO RESPIRATORY DISTRESS OBSERVED. BED IN LOWER POSITION, CALL LIGHT AT REACH, ALL PERSONAL ITEMS CLOSE TO PATIENT.
--- NOTE | 2018-06-27 07:17 | NUR ---
Patient resting comfortably. Shift report given to oncoming nurse.
--- NOTE | 2018-06-27 09:18 | NUR ---
Referral faxed to [facility] at [phone] / P [phone]. Sil with [facility] will assist with placement.
[2018-06-27] MEDS: QUETIAPINE FUMARATE 25 MG TAB PO SCH ×3 (09:24→21:42)
[2018-06-27] MEDS: DEXAMETHASONE 4 MG TAB PO SCH ×2 (09:24→17:39)
[2018-06-27] MEDS: FLUOXETINE HCL 20 MG CAP PO SCH (09:24)
[2018-06-27] MEDS: PANTOPRAZOLE 40 MG 10ML VIAL IV SCH (09:24)
--- NOTE | 2018-06-27 10:46 | NUR ---
Spoke with Sil with [facility]. She stated that [facility] would consider Medicaid pending. requesting CM to fax clinicals there. CM called pt's daughter Yasmin Freeman at [phone] to discuss choice. CM left a voicemail for her to call back.
--- NOTE | 2018-06-27 13:46 | NUR ---
PATIENT REQUESTED AND RECEIVED A CUP OF COFFEE. IN BED RESTING WITH NO RESPIRATORY DISTRESS OBSERVED. CALL LIGHT AT REACH.
--- NOTE | 2018-06-27 16:30 | NUR ---
PATIENT ASSISTED TO THE RESTROOM AND BACK TO BED. IV FLUID INFUSING ORDERED. BED IN LOWER POSITION, CALL LIGHT AT REACH.
--- NOTE | 2018-06-27 19:22 | NUR ---
Patient received lying in bed. AAO x 3. No acute distress noted. Call light within reach.
[2018-06-27] MEDS: ZOLPIDEM TARTRATE 5 MG TAB PO SCH (21:42)
[2018-06-27] MEDS: SODIUM CHLORIDE 0.9% 1000ML 1,000 ML IV SCH (21:58)
[2018-06-28] MEDS: MECLIZINE HCL 12.5 MG TAB PO SCH ×5 (00:19→23:58)
[2018-06-28 01:01] VITALS: BP 104/63
[2018-06-28] MEDS: HYDROCODONE/APAP 5MG-325MG TAB PO SCH ×5 (06:11→23:59)
[2018-06-28] MEDS: ALPRAZOLAM 0.5 MG TAB PO SCH ×4 (06:11→23:58)
[2018-06-28 06:36] VITALS: BP 128/84
[2018-06-28 07:49] VITALS: BP 121/60
--- NOTE | 2018-06-28 08:00 | NUR ---
PT ROUNDING DONE EARLIER. SAFETY PRECAUTION MAINTAINED.
[2018-06-28] MEDS: QUETIAPINE FUMARATE 25 MG TAB PO SCH ×3 (08:41→21:46)
[2018-06-28] MEDS: FLUOXETINE HCL 20 MG CAP PO SCH (08:41)
[2018-06-28] MEDS: DEXAMETHASONE 4 MG TAB PO SCH ×2 (08:41→17:00)
[2018-06-28] MEDS: PANTOPRAZOLE 40 MG 10ML VIAL IV SCH (08:54)
[2018-06-28 11:43] VITALS: BP 112/66
--- NOTE | 2018-06-28 12:00 | NUR ---
PT GIVEN SHOWER AND LINENS CHANGE. PT RESTING QUIETLY NOW.
[2018-06-28] MEDS: SODIUM CHLORIDE 0.9% 1000ML 1,000 ML IV SCH (15:26)
[2018-06-28 15:49] VITALS: BP 117/70
--- NOTE | 2018-06-28 18:38 | NUR ---
NO CHANGES AT THIS TIME IS PT STATUS. SAFETY PRECAUTION MAINTAINED.
[2018-06-28 20:00] VITALS: BP 115/67
[2018-06-28] MEDS: ZOLPIDEM TARTRATE 5 MG TAB PO SCH (21:46)
[2018-06-29] VITALS (10 sets, daily range): BP systolic 105–136; BP diastolic 58–93
[2018-06-29] MEDS: HYDROMORPHONE 2MG/ML 2 MG/ML ML IV PRN (04:33)
[2018-06-29] MEDS: ALPRAZOLAM 0.5 MG TAB PO SCH ×3 (06:32→21:34)
[2018-06-29] MEDS: MECLIZINE HCL 12.5 MG TAB PO SCH ×3 (06:32→17:03)
[2018-06-29] MEDS: HYDROCODONE/APAP 5MG-325MG TAB PO SCH ×3 (06:32→21:33)
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
[2018-06-29] MEDS: FLUOXETINE HCL 20 MG CAP PO SCH (09:29)
[2018-06-29] MEDS: PANTOPRAZOLE 40 MG 10ML VIAL IV SCH (09:29)
[2018-06-29] MEDS: QUETIAPINE FUMARATE 25 MG TAB PO SCH ×3 (09:29→20:10)
[2018-06-29] MEDS: DEXAMETHASONE 4 MG TAB PO SCH ×2 (09:29→17:03)
--- NOTE | 2018-06-29 10:57 | NUR ---
SPOKE WITH DAUGHTER WHOM STATES VIA THE PHONE IT IS OKAY TO SEND CLINICALS TO [facility]. WILL FAX FOR REVIEW.
[2018-06-29] MEDS: SODIUM CHLORIDE 0.9% 1000ML 1,000 ML IV SCH (11:40)
--- NOTE | 2018-06-29 16:00 | NUR ---
visitor noted entering patients room by BRENNAN Asif, this nurse notified by BRENNAN. entered room to ask visitor for identity and female identified self as patients roommatt Rodrigez. informed her patients visitors restricted to only family. she asked why and informed her it was a family decision and will need to contact patients family. she goes on to ask "well can i have her sign some papers." this nurse asked Elia what kind of papers and she states "title papers." then asked her title for what and she then states "title for her car." this nurse informed her patient cannot make legal decision at this time as she is in hospital ill and for her to call daughter in regards to this paperwork. she verbalized "I'm really upset about this." as she walked towards elevators. APRYL Graves and HAKEEM Ny aware.
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
--- NOTE | 2018-06-29 17:55 | NUR ---
Nutrition Screen Note RD Recommendation for Physician: -Continue regular diet as medically appropriate The patient meets criteria for MODERATE protein-calorie malnutrition. Plan of Care: Sign off, please consult as needed. (Hospice care) Nutrition reason for involvement: LOS Primary Diagnose(s): dehydration, failure to thrive, hyponatremia PMH: metastatic squamous cell carcinoma of the lung, severe esophagitis, diverticulosis, degenerative joint disease with back disease and chronic back pain, mood disorder, osteoporosis, esophageal ulcers, chronic anemia, mood disorder, Afib Ht: 63in Wt: 116.05lb BMI: 20.6kg/m2 IBW: 115lb RD Assessment: (06/29/18) Chart reviewed. Labs and meds reviewed. 67yo F, who is admitted for weakness. Visited pt in the room. Pt reports good appetite with ~75% meal intake. No GI complains noted. LBM- 06/28. Pt has no teeth; downgraded diet texture to mechanical soft. No swallowing difficulty noted. Weight check on 03/2018 showed 133lb; possible ~12.8% weight loss in the last 4 months (severe). Will continue to monitor and follow. Current Diet: regular diet Malnutrition Evaluation (06/29/2018) The patient meets criteria for MODERATE protein-calorie malnutrition. Energy intake: <75% of estimated energy requirements for >3 months Weight loss: >7.5% in 3 months (Chronic) Fat loss: Moderate clavicle protrusion, loss of fat over triceps Muscle loss: Moderate protrusion of clavicle, depression of temporal Supporting Evidence: Fluid accumulation: unable to evaluate Functional Status: weakness Diet Education Needs Assessment: Diet education not indicated. Nutrition Care Level: low Signed: Ana Serrano MS, RD, LD
[2018-06-29] MEDS: ZOLPIDEM TARTRATE 5 MG TAB PO SCH (20:10)
[2018-06-30] VITALS (7 sets, daily range): BP systolic 118–168; BP diastolic 68–88
[2018-06-30] MEDS: MECLIZINE HCL 12.5 MG TAB PO SCH ×5 (00:27→23:29)
[2018-06-30] MEDS: DEXAMETHASONE 4 MG TAB PO SCH (04:12)
--- NOTE | 2018-06-30 04:15 | NUR ---
Patient is c/o severe abdominal pain. Was found curled up in a ball in bed. Patient did have a large BM about an hour ago. Per order scheduled pain medication not due for another hour. Decardon 2 mg was administered & heating pad was placed for comfort measures.
--- NOTE | 2018-06-30 04:58 | NUR ---
Patient states some relief from abdominal pain but is now c/o nausea, Zofran was administered.
[2018-06-30] MEDS: ONDANSETRON HCL INJ 2 MG/ML VIAL IV PRN (05:00)
[2018-06-30] MEDS: ALPRAZOLAM 0.5 MG TAB PO SCH ×3 (05:24→22:19)
[2018-06-30] MEDS: HYDROCODONE/APAP 5MG-325MG TAB PO SCH ×3 (05:24→22:18)
--- NOTE | 2018-06-30 07:05 | NUR ---
pt alert resp even and unlabored at this time, no distress noted, pt sitting up right in bed no c/o pain at this time, call light in reach, will cont. to monitor.
[2018-06-30] MEDS ORDERED: HYDROMORPHONE 1MG/1ML INJ IV PRN (07:30)
[2018-06-30] MEDS ORDERED: HYDROMORPHONE 2MG/ML 2 MG/ML ML IV PRN (07:30)
--- NOTE | 2018-06-30 07:37 | NUR ---
Patient still c/o abdominal pain, 04/13. Dr. Barajas was notified on patient status, telephone orders received to resume Dilaudid 1mg Q4 PRN, KUB, CBC, CMP & amylase.
--- NOTE | 2018-06-30 07:43 | NUR ---
Attempted to administer prn pain medication, patient is found to be lethargic but easily aroused to verbal stimuli. She is A&Ox3 but appears to be very weak at this time. VS were taken BP 165/85, pulse 84. Will hold medication for now and informed covering nurse on patient status.
[2018-06-30 07:52] LABS: BASOPHILS % 0.1 % (0.0-1.0); HEMATOCRIT 41.3 % (34.2-44.1); HEMOGLOBIN 12.3 g/dL (12.0-16.0); LYMPHOCYTES # (AUTO) 0.3 (1.0-3.2); LYMPHOCYTES % 2.7 % (18.0-39.1); MEAN CORPUSCULAR HEMOGLOBIN 27.4 pg (28-32); MEAN CORPUSCULAR HGB CONC 29.8 g/dL (31-35); MONOCYTES # (AUTO) 0.7 (0.2-0.8); MONOCYTES % 5.8 % (4.4-11.3); NEUTROPHILS # (AUTO) 11.5 (2.1-6.9); NEUTROPHILS % 90.6 % (38.7-80.0); PLATELET COUNT 139 x10e3/uL (140-360); RED BLOOD COUNT 4.49 x10e6/uL (3.6-5.1); RED CELL DISTRIBUTION WIDTH 18.7 % (11.7-14.4)
[2018-06-30 08:17] LABS: ALANINE AMINOTRANSFERASE 173 IU/L (0-55); ALBUMIN 2.4 g/dL (3.5-5.0); ALBUMIN/GLOBULIN RATIO 0.4 (0.8-2.0); ALKALINE PHOSPHATASE 293 IU/L (40-150); AMYLASE 22 U/L (25-125); ANION GAP 15.4 mmol/L (8-16); BLOOD UREA NITROGEN 16 mg/dL (7-26); BUN/CREATININE RATIO 23 (6-25); CALCIUM 11.4 mg/dL (8.4-10.2); CARBON DIOXIDE 24 mmol/L (22-29); CHLORIDE 99 mmol/L (98-107); EST GLOMERULAR FILTRATION RATE > 60 ML/MIN (60-); GLUCOSE 118 mg/dL (74-118); POTASSIUM 4.4 mmol/L (3.5-5.1); SODIUM 134 mmol/L (136-145)
[2018-06-30] MEDS: SODIUM CHLORIDE 0.9% 1000ML 1,000 ML IV SCH (08:41)
[2018-06-30] MEDS: FLUOXETINE HCL 20 MG CAP PO SCH (08:46)
[2018-06-30] MEDS: PANTOPRAZOLE 40 MG 10ML VIAL IV SCH (08:46)
[2018-06-30] MEDS: QUETIAPINE FUMARATE 25 MG TAB PO SCH ×3 (08:46→20:19)
--- NOTE | 2018-06-30 09:42 | Diagnostic Imaging Report ---
PROCEDURE:X-RAY ABDOMEN - KUB COMPARISON:None. INDICATIONS:ABDOMINAL PAIN FINDINGS: There are no dilated loops of bowel to suggest obstruction. There are no masses or abnormal calcifications. Soft tissue density overlying the pelvis suggests bladder or uterine prolapse. Moderate amount of fecal material throughout the colon. Extensive degenerative changes of the spine. CONCLUSION: 1. No acute abdominal abnormality. 2. Moderate residual fecal material throughout the colon. Tex Castano D.O. Dictated by: Tex Castano D.O. on 06/30/2018 at 9:53 Electronically approved by: Tex Castano D.O. on 06/30/2018 at 9:53
[2018-06-30] MEDS ORDERED: CEFEPIME HCL 1 GM VIAL IV SCH (11:45)
[2018-06-30] MEDS: CEFEPIME 1GM/NS 0.9% 50 ML 50 ML IV SCH ×2 (12:10→22:13)
[2018-06-30] MEDS ORDERED: MINERAL OIL 132 ML BTL PR NR (12:15)
--- NOTE | 2018-06-30 12:18 | NUR ---
CALLED AND SPOKE WITH DAUGHTER SHAHRAM WHOM STATES THE BANK WILL NOT RELEASE THE BANK STATEMENTS TO HER. THAT IS ALL THAT [facility] NEEDS TO ADMIT FOR MEDICAID PENDING. SHE STATES THAT IF SHE NEEDS TO COME GET HER SHE WILL. CALLED HARESH AND TOLD HER THAT I HAD THE CONVERSATION. SHE STATES SHE WILL CONTACT THE DAUGHTER TO SEE IF SHE WANTS TO TAKE HER HOME OR ATTEMPT AGAIN WITH [facility] TO SEE IF ANYTHING ELSE CAN BE DONE.
[2018-06-30] MEDS: DOCUSATE SODIUM 100 MG CAP PO SCH ×2 (13:04→16:47)
[2018-06-30] MEDS: METRONIDAZOLE 500MG/NS 100ML 100 ML IV SCH ×2 (14:43→22:18)
--- NOTE | 2018-06-30 19:00 | NUR ---
Received patient awake, confused, not in distress, call light within easy reach, advised to call for assistance when needed, bed alarm on, bed in low position and locked. Will continue to monitor closely.
--- NOTE | 2018-06-30 19:15 | NUR ---
report given to oncoming nurse, for continued care.
--- NOTE | 2018-06-30 20:00 | NUR ---
Dr. Hardwick seen pt with orders for Bone Scan and check labs in AM
[2018-06-30] MEDS: ZOLPIDEM TARTRATE 5 MG TAB PO SCH (20:16)
[2018-07-01] VITALS: BP 116/63
[2018-07-01] MEDS: SODIUM CHLORIDE 0.9% 1000ML 1,000 ML IV SCH (03:47)
[2018-07-01 04:00] VITALS: BP 120/66
[2018-07-01 05:09] LABS: BASOPHILS % 0.1 % (0.0-1.0); HEMATOCRIT 36.1 % (34.2-44.1); HEMOGLOBIN 10.9 g/dL (12.0-16.0); LYMPHOCYTES # (AUTO) 0.6 (1.0-3.2); LYMPHOCYTES % 4.1 % (18.0-39.1); MEAN CORPUSCULAR HEMOGLOBIN 27.4 pg (28-32); MEAN CORPUSCULAR HGB CONC 30.2 g/dL (31-35); MEAN CORPUSCULAR VOLUME 90.7 fL (81-99); MONOCYTES # (AUTO) 0.9 (0.2-0.8); MONOCYTES % 6.4 % (4.4-11.3); NEUTROPHILS # (AUTO) 12.9 (2.1-6.9); NEUTROPHILS % 88.7 % (38.7-80.0); PLATELET COUNT 130 x10e3/uL (140-360); RED BLOOD COUNT 3.98 x10e6/uL (3.6-5.1); RED CELL DISTRIBUTION WIDTH 18.9 % (11.7-14.4)
[2018-07-01] MEDS: METRONIDAZOLE 500MG/NS 100ML 100 ML IV SCH (05:23)
[2018-07-01] MEDS: HYDROCODONE/APAP 5MG-325MG TAB PO SCH (05:32)
[2018-07-01] MEDS: MECLIZINE HCL 12.5 MG TAB PO SCH (05:32)
[2018-07-01] MEDS: ALPRAZOLAM 0.5 MG TAB PO SCH (05:32)
[2018-07-01 05:45] LABS: ALANINE AMINOTRANSFERASE 130 IU/L (0-55); ALBUMIN/GLOBULIN RATIO 0.4 (0.8-2.0); ALKALINE PHOSPHATASE 294 IU/L (40-150); BLOOD UREA NITROGEN 15 mg/dL (7-26); BUN/CREATININE RATIO 23 (6-25); CARBON DIOXIDE 22 mmol/L (22-29); CHLORIDE 98 mmol/L (98-107); CREATININE, SERUM 0.65 mg/dL (0.57-1.11); EST GLOMERULAR FILTRATION RATE > 60 ML/MIN (60-); GLUCOSE 96 mg/dL (74-118); SODIUM 131 mmol/L (136-145)
[2018-07-01] MEDS ORDERED: PAMIDRONATE DISODIUM 30 MG/VIAL IV ONE (06:30)
--- NOTE | 2018-07-01 06:30 | NUR ---
Spoke to Dr. Hardwick re Calcium level this AM, with orders of Zometa 3mg IV x 1 dose
--- NOTE | 2018-07-01 06:34 | NUR ---
Called pharmacy re new medication order, spoke to Quang, he said we do not carry Zometa instead we have drug of the same class Pamidronate Disodium, starts with 60mg up to 90 mg when its severe, will inform Dr. Hardwick
--- NOTE | 2018-07-01 06:42 | NUR ---
Called Dr. Hardwick informed of the alternative, with orders to give Pamidronate 60mg IV x 1 dose
--- NOTE | 2018-07-01 07:07 | NUR ---
communicate with oncoming nurse re order of Dr. Hardwick
--- NOTE | 2018-07-01 07:07 | NUR ---
pt awake resp even and unlabored at this time no distress noted. pt able to make needs known, call light in reach will cont to monitor.
[2018-07-01] MEDS ORDERED: PAMIDRONATE DISODIUM 60 MG in SODIUM CHLORIDE 0.9% 500ML 500 ML IV ONE (07:30)
[2018-07-01 07:59] VITALS: BP 131/64
[2018-07-01] MEDS: CEFEPIME 1GM/NS 0.9% 50 ML 50 ML IV SCH (08:05)
[2018-07-01] MEDS: FLUOXETINE HCL 20 MG CAP PO SCH (09:41)
[2018-07-01] MEDS: PANTOPRAZOLE 40 MG 10ML VIAL IV SCH (09:41)
[2018-07-01] MEDS: QUETIAPINE FUMARATE 25 MG TAB PO SCH (09:41)
[2018-07-01] MEDS: DOCUSATE SODIUM 100 MG CAP PO SCH (09:41)
--- NOTE | 2018-07-01 10:48 | NUR ---
pt having injection for bone scan.
[2018-07-01 11:46] VITALS: BP 99/59
--- NOTE | 2018-07-01 13:58 | NUR ---
PT ACCEPTED TO [facility] [address] [id number], , RTF, DISCHARGE SUMMARY AND PASRR FILLED OUT GIVEN TO NURSE FOR PACKET AND FILED IN CHART APPROPRIATELY, WILL BE GOING ON [facility].
--- NOTE | 2018-07-01 15:45 | NUR ---
PT ALERT AND BEING TRANSPORTED TO [facility], VIA AMBULANCE SERVICE.
--- NOTE | 2018-07-01 16:50 | NUR ---
DR. FAIRCHILD NOTIFIED.
--- NOTE | 2018-07-01 17:05 | Discharge Summary ---
HISTORY OF PRESENT ILLNESS: The patient was hospitalized through the emergency room. See ER notes. The patient presented for multiple difficulties including progressive weakness and pain, especially in the left upper extremity. Database was ordered to be obtained and monitored. The patient was seen while here by her oncologist, who recommended terminal care through hospice, stating no further treatment for the patient's widely metastatic squamous cell carcinoma was indicated. Course was complicated by intermittent pain. The patient also had nausea and vomiting on arrival, and this persisted intermittently throughout the first 2 days here and then resolved. Course later was complicated by episode of abdominal pain with essentially negative reassessment. See also as mentioned serial laboratory, imaging studies, and consultations as mentioned. LABORATORY STUDIES: Revealed significant anemia, and the patient was transfused shortly after arrival. No bleeding was observed. The patient has hypercalcemia with elevated alkaline phosphatase and transaminases. She has a known history of bony metastases. She was rehydrated while here. She was given 1 dose of Fleets while here by enema for constipation and hypercalcemia. History includes and diagnoses include also widely metastatic squamous cell lung carcinoma. Mood disorder. Bony metastases with hypercalcemia. Central nervous system metastases. Esophagitis. Diverticulosis. Constipation while here, treated. Emphysema. See also discharge medicine list. Patient will be discharged to hospice care at a local alf, [facility]. ANGIE FAIRCHILD MD Job#: [id number] KADEN
--- NOTE | 2018-07-04 20:09 | Progress Note ---
DATE: July 01, 2018 FOLLOWUP NOTE Patient with metastatic non-small cell lung cancer, admitted due to fatigue, weakness and shortness of breath. She was managed aggressively with improved symptoms. She was noted to have hypercalcemia, probably malignancy-induced. She was given bisphosphonate. She was also given IV fluid. Further workup was requested including bone scan and ultrasound of the abdomen; however, patient decided to go with mostly comfort measure and hospice. Resulting further studies discontinued. Advanced care planning provided to the patient. Vitals signs reviewed. Laboratory data reviewed. The patient is going to be discharged to hospice. Job#: [id number] PUN
== END 2018-07-01 15:45 | disposition hospice, inpatient (51) | DRG 948 ==
LOC: ER 14:59 → ERHOLD 21:24 → MED/SURG2 23:16
PROVIDERS: ADMIT Internal Medicine; ATTEND Internal Medicine
DX: G89.3 Neoplasm related pain (acute) (chronic) (principal); C79.51 Secondary malignant neoplasm of bone; C34.92 Malignant neoplasm of unspecified part of left bronchus or lung; E87.5 Hyperkalemia; E86.0 Dehydration; E83.39 Other disorders of phosphorus metabolism; K59.00 Constipation, unspecified; K57.90 Diverticulosis of intestine, part unspecified, without perforation or abscess without bleeding; D63.0 Anemia in neoplastic disease; D63.8 Anemia in other chronic diseases classified elsewhere; F39 Unspecified mood [affective] disorder; K20.9 Esophagitis, unspecified; J43.9 Emphysema, unspecified; M81.0 Age-related osteoporosis without current pathological fracture; Z87.891 Personal history of nicotine dependence; M47.9 Spondylosis, unspecified; I48.0 Paroxysmal atrial fibrillation; Z79.01 Long term (current) use of anticoagulants; M51.17 Intervertebral disc disorders with radiculopathy, lumbosacral region; M51.34 Other intervertebral disc degeneration, thoracic region
CPT/HCPCS: 36415; 71045; 74018; 80048; 80053; 81001; 82150; 83518; 83935; 84300; 85014; 85018; 85025; 85610; 86850; 86900; 86920; 87070; 96360; 96361; 99284; J0692; J2405; J2430; J7030; J7040; J7050; P9016